=== PATIENT | male | born 1950 | race Caucasian/White ===

== ENCOUNTER → 2019-09-13 07:43 | Outpatient (CLI) | payer MEDICARE, OTHER, SELFPAY ==
--- NOTE | 2019-09-13 07:44 | ECHOD_ITS ---
Reason For Study: DYSPNEA Procedure This was a 2D Doppler, Color Flow transthoracic echocardiogram. Exam performed in department. Left Ventricle Normal LV size. The estimated ejection fraction is 45 %. Stage 1 diastolic dysfunction. There is mild global hypokinesis of the left ventricle. Right Ventricle Normal RV size. Normal systolic function. Atria Normal left atrium. Normal right atrium. No doppler evidence for ASD. Mitral Valve There is no mitral valve stenosis. Trivial mitral valve insufficiency. Tricuspid Valve There is no tricuspid stenosis. No tricuspid valve insufficiency. Unable to estimate RV systolic pressure due to insufficient tricuspid regurgitant envelope. Aortic Valve Trisinus/trileaflet aortic valve. There is no aortic stenosis. Trivial aortic valve insufficiency. Pulmonic Valve There is no pulmonic valvular stenosis. Trivial pulmonic valve insufficiency. Great Vessels Normal aortic root. Pericardium/Pleural No pericardial effusion. MMode/2D Measurements & Calculations LVIDd: 6.6 cm IVSd: 1.4 cm Ao root diam: 3.9 cm LVIDs: 5.4 cm LVPWd: 1.3 cm RVDd: 3.1 cm FS: 18.3 % LAV(MOD-bp): 73.6 ml LA A4 area: 23.1 cm2 LA dimension(2D): 4.6 cm LAV(MOD-bp) Indexed: 31.7 ml/m2 LAV(MOD-sp2): 70.8 ml LAV(MOD-sp4): 73.6 ml RA A4 area: 14.6 cm2 Time Measurements MV dec time: 0.13 sec Doppler Measurements & Calculations MV E max lux: 61.5 cm/sec Lat Peak E' Lux: 7.3 cm/sec Med Peak E' Lux: 4.5 cm/sec MV A max lux: 101.8 cm/sec E/E' lat: 8.4 E/E' med: 13.8 MV E/A: 0.60 Ao V2 max: 116.6 cm/sec AI max lux: 449.4 cm/sec LV V1 max: 81.0 cm/sec Ao max P.4 mmHg AI max P.8 mmHg LV V1 max P.6 mmHg AI dec slope: 297.2 cm/sec2 AI P1/2t: 442.9 msec PA V2 max: 69.5 cm/sec Interpretation Summary The estimated ejection fraction is 45 %. Stage 1 diastolic dysfunction. There is mild global hypokinesis of the left ventricle. Trivial mitral valve insufficiency. Trivial aortic valve insufficiency. Ordering Physician: Jose A Suarez Referring Physician: Fritz Gasca Performed By: Germaine Mcbride, MAURICIO, RVT
--- NOTE | 2019-09-14 11:15 | PFT ---
INTRODUCTION: The patient is a 68-year-old male that presents for pulmonary function studies secondary to a diagnosis of dyspnea. Respiratory therapy reports good patient effort. Bronchodilators were used during testing. INTERPRETATION: Forced expiration spirometry demonstrates the presence of a very severe large airways obstructive ventilatory defect. There was a significant response to aerosolized bronchodilators noted. Spirograms are of fair quality and do not plateau indicating slow emptying of the lungs. Body plethysmography was performed and reveals an elevated TLC and RV, indicative of underlying hyperinflation and air trapping. Diffusing capacity by single breath CO is reduced at 58% of predicted. IMPRESSION: Partially reversible very severe large airways obstructive ventilatory defect with associated hyperinflation, air trapping and moderate reduction in diffusing capacity.
== END ==
PROVIDERS: PCP Family Medicine; Referring Provider Internal Medicine Critical Care Medicine; Visit Provider Internal Medicine Critical Care Medicine
DX: R06.00 Dyspnea, unspecified (principal)
CPT/HCPCS: 93306; 94010; 94060; 94726; 94729

== ENCOUNTER → 2019-09-21 12:35 | Outpatient (CLI) | payer MEDICARE, OTHER, SELFPAY ==
[2019-09-21 13:54] VITALS: PULSE 100; PULSE 101; PULSE 103; PULSE 106; PULSE 85; PULSE 90; PULSE 94; PULSE 99; O2SAT 91; O2SAT 92; O2SAT 93; O2SAT 95
--- NOTE | 2019-09-21 14:31 | PCM.PSN.6M ---
PSN 6 Minute Walk Test - 6 Minute Walk Test 6 Minute Walk Test: 6 Minute Walk Test PSN:6-Minute Walk Test Start: 09/21/19 13:37 Freq: Status: Active Protocol: RESP.6MINW Document 09/21/19 13:54 [facility] (Rec: 09/21/19 13:58 [facility] [id number]) 6 Minute Walk Test Date Performed 09/21/19 Time Performed 12:30 Height 5 ft 11 in Weight: 113.398 kg Weight in Pounds 250.[address]: Jose A Suarez Assistive device used: Walker Pre-test Oxygen Delivery Method Room Air Pulse Ox (%) 95 Pulse Rate (60-100 beats/min) 90 Dyspnea Monique Scale (0-10) 3 1st minute Oxygen Delivery Method Room Air Pulse Ox (%) 92 Pulse Rate (60-100 beats/min) 94 Dyspnea Monique Scale (0-10) 4 Number of Rests Taken 0 Reported Symptoms Increased Work of Breathing 2nd minute Oxygen Delivery Method Room Air Pulse Ox (%) 91 Pulse Rate (60-100 beats/min) 106 H Dyspnea Monique Scale (0-10) 4 Number of Rests Taken 0 Reported Symptoms Increased Work of Breathing 3rd minute Oxygen Delivery Method Room Air Pulse Ox (%) 91 Pulse Rate (60-100 beats/min) 99 Dyspnea Monique Scale (0-10) 5 Number of Rests Taken 1 Reported Symptoms Increased Work of Breathing 4th minute Oxygen Delivery Method Room Air Pulse Ox (%) 93 Pulse Rate (60-100 beats/min) 100 Dyspnea Monique Scale (0-10) 4 Number of Rests Taken 0 Reported Symptoms Increased Work of Breathing 5th minute Oxygen Delivery Method Room Air Pulse Ox (%) 93 Pulse Rate (60-100 beats/min) 101 H Dyspnea Monique Scale (0-10) 4 Number of Rests Taken 0 Reported Symptoms Increased Work of Breathing 6th minute Oxygen Delivery Method Room Air Pulse Ox (%) 92 Pulse Rate (60-100 beats/min) 103 H Dyspnea Monique Scale (0-10) 5 Number of Rests Taken 0 Reported Symptoms Increased Work of Breathing Post-test Oxygen Delivery Method Room Air Pulse Ox (%) 95 Pulse Rate (60-100 beats/min) 85 Dyspnea Monique Scale (0-10) 3 Reported Symptoms Increased Work of Breathing Full Laps Walked 8 Partial Lap, Number of Tiles Walked 13 Total Distance Walked (ft) 485 - Interpretation Interpretation: Patient was able to ambulate 485 feet over the course of 6 minutes on room air with the assistance of a wheelchair for stabilization and one break. The patient experienced significant desaturation to as low as 91% and a peak heart rate of 106 bpm. These findings are consistent with a respiratory limitation exercise tolerance. - Recommendations Recommendations: The patient requires no supplemental oxygen at this time. However, patient will need to be followed closely given level of desaturation.
== END ==
PROVIDERS: PCP Family Medicine; Referring Provider Internal Medicine Critical Care Medicine; Visit Provider Internal Medicine Critical Care Medicine
DX: R06.00 Dyspnea, unspecified (principal)
CPT/HCPCS: 94618

== ENCOUNTER 2020-06-14 16:16 | Inpatient (IN) | payer MEDICARE, OTHER, SELFPAY ==
[2020-06-12 07:53] VITALS: BMI 33.2
[2020-06-14] VITALS (9 sets, daily range): BP systolic 115–155; BP diastolic 70–94; PULSE 95–114; RESP 12–33; TEMP 36.6–37.3; O2SAT 93–97; BMI 35.1; BMI 33.0
--- NOTE | 2020-06-14 16:27 | EKG12_ITS ---
Test Reason : SOB Blood Pressure : / mmHG Vent. Rate : 107 BPM Atrial Rate : 107 BPM P-R Int : 182 ms QRS Dur : 092 ms QT Int : 340 ms P-R-T Axes : 015 -33 025 degrees QTc Int : 453 ms Sinus tachycardia Left axis deviation Left ventricular hypertrophy Abnormal ECG Confirmed by PHILIPPE BREAUX, ANA ([id number]), purchase request editor ABHISHEK MARCUM ([id number]) on 06/17/2020 11:04:24 AM Referred By: SHAHEED Confirmed By:ANA PAEZ MD
--- NOTE | 2020-06-14 16:32 | EDS_ITS ---
HPI History of Present Illness Chief Complaint: Shortness of Breath Informant: patient, spouse/S.O. and EMS Narrative Narrative: 69-year-old male presents via EMS with a chief complaint of dyspnea. Patient states that since the beginning of May he has had a change in his mucus. He states it was thick yellow and got a little bit better in terms of his cough but then turned green. Yesterday he was seen at his director drug safety office where home oxygen was ordered but he did not have it yet. He states that during the night he began to have chills and sweats. states he had a fever of 104. His breathing became significantly labored today and EMS was called. They noted him to be about 86-87% at home. EMS gave breathing treatments and supplemental oxygen they also administered Solu-Medrol. [facility] Medical History (Updated 06/14/20 @ 19:[address] Chase Hurd DO) Asthma COPD (chronic obstructive pulmonary disease) COPD (chronic obstructive pulmonary disease) Essential hypertension Other psoriasis Home Medications ipratropium 0.5 mg-albuterol 3 mg (2.5 mg base)/3 mL nebulization soln 3 ml INHALATION 6XD #180 ml 12/17/19 [Rx Last Taken Unknown] albuterol sulfate 90 mcg/actuation aerosol inhaler 2 puff INHALATION Q6H PRN #8.5 g 06/12/20 [Rx Last Taken Unknown] budesonide 0.5 mg/2 mL suspension for nebulization 0.5 mg INHALATION BID #60 ml 06/12/20 [Rx Last Taken Unknown] Allergy/AdvReac Type Severity Reaction Status Date / Time No Known Allergies Allergy Unverified 06/12/20 08:42 Family History (Reviewed 06/12/20 @ 09:04 by Bethany Castellanos CHEMISTRY DEPARTMENT CHAIR, CHEMISTRY DEPARTMENT CHAIR-C) Father Myocardial infarction Grandmother Diabetes Other CAD (coronary artery disease) Surgical History No pertinent past surgical history Social History household members: spouse housing: other details: Mobile home pets and animals: Yes pets and animals: dog(s) Smoking Status: Former smoker quit date: 02/14/09 alcohol intake: former ROS ROS ED Constitutional Constitutional ED: Reports chills, fever(s) and sweats; Denies weight loss Eyes Eyes: Denies change in vision or diplopia ENT ENT ED: Reports rhinorrhea; Denies ear pain or sore throat Cardiovascular Cardiovascular: Denies chest pain, orthopnea, palpitations or racing heartbeat Respiratory/Chest Respiratory/Chest: Reports cough, dyspnea, dyspnea on exertion and sputum; Denies orthopnea Gastrointestinal Gastrointestinal: Denies abdominal pain, diarrhea, nausea or vomiting Genitourinary Genitourinary ED: Denies dysuria, hematuria or urinary frequency Musculoskeletal Musculoskeletal: Denies arthralgias or myalgias Integumentary Denies abscess or rash Neurologic Neurologic: Reports headache(s); Denies weakness Psychiatric Psychiatric: Denies anxiety, depression, suicidal ideation or suicidal thoughts Endocrine Endocrinology: Denies polydipsia, polyphagia or polyuria Allergic/Immunologic Allergic/Immunologic ED: Denies mouth swelling, tongue swelling or urticaria EXAM Physical Exam Const Vital Signs: 06/14/20 16:18 06/14/20 16:30 06/14/20 16:49 Temperature 97.9 F Temperature Source Oral Pulse Rate 114 H 109 H Respiratory Rate 33 H 21 H Respiratory Effort Short of Breath Labored Respiratory Depth Normal Respiratory Pattern Tachypnea Normal Blood Pressure 155/94 H Blood Pressure Mean 114 Pulse Ox 96 97 Oxygen Delivery Method Nasal Cannula Nasal Cannula Oxygen Flow Rate (L/min) 2 2 Fraction of Inspired Oxygen (FIO2) 40 06/14/20 17:58 06/14/20 18:00 06/14/20 19:06 Temperature 98.5 F 98.5 F 98.5 F Temperature Source Oral Oral Oral Pulse Rate 112 H 104 H 102 H Respiratory Rate 18 30 H 26 H Respiratory Effort Respiratory Depth Respiratory Pattern Blood Pressure 118/78 115/70 120/79 Blood Pressure Mean 91 85 92 Pulse Ox 95 94 94 Oxygen Delivery Method Nasal Cannula Nasal Cannula Nasal Cannula Oxygen Flow Rate (L/min) 3 3 3 Fraction of Inspired Oxygen (FIO2) Positive well nourished and well developed General Appearance ED: well developed HEENT Reports normocephalic, head/scalp atraumatic and moist mucous membranes HEENT Narrative: Rhinorrhea Eyes PERRL and EOMs intact bilaterally Neck no lymphadenopathy, supple and no JVD Resp Resp Narrative: Moderate respiratory distress Auscultation: rhonchi Cardio regular rate and no murmurs Rate: tachycardic GI normal to inspection, nondistended, normoactive bowel sounds and non-tender Palpation: soft Back/Spine no CVA tenderness and normal ROM Extremity normal to inspection General Extremety ED: Negative for edema General Extremity: Negative for edema Neuro oriented x3 and CN's II-XII intact bilaterally Sensorium / Orientation: alert Motor Exam: strength 5/5 throughout Psych mental status grossly normal Mood & Affect: Negative for depressed or tearful Skin no rashes or lesions noted and no wounds General Skin Exam: other Diaphoretic MDM MDM MDM Narrative Medical decision making narrative: Patient initially treated with BiPAP. His pH was normal with no significant elevation in his CO2. Patient did not wish to be on the BiPAP any further and after breathing treatment was breathing significantly better. Patient's Covid test came back positive. White count is 3.5. Troponin 0 0.05. Lactic acid 1.2. My interpretation of his single view portable chest x-ray is no definitive infiltrates. CTA of the chest demonstrates patchy focal areas of inflammation. No pulmonary embolisms. Patient received a breathing treatment supplemental oxygen currently requiring 3 L. He had already received Solu-Medrol by EMS. Our plan is admission to the hospital. Lab Data Attestation: I reviewed the patient's lab results. Labs: Laboratory Results - last 24 hr 06/14/20 06/14/20 06/14/20 16:30 16:30 16:30 WBC 3.5 L RBC 4.88 Hgb 14.3 Hct 43.7 MCV 89.5 MCH 29.3 MCHC 32.7 RDW Std Deviation 45.0 H RDW Coeff of [place] 13.7 Plt Count 174 MPV 9.0 Immature Gran % (Auto) 2.300 H Neut % (Auto) 66.4 Lymph % (Auto) 22.1 Granite % (Auto) 8.0 Eos % (Auto) 0.3 Baso % (Auto) 0.9 Absolute Neuts (auto) 2.3 Absolute Lymphs (auto) 0.77 L Nucleated RBC % 0 PT 13.1 INR 1.1 APTT 33.1 Sodium 133 L Potassium 3.8 Chloride 100 Carbon Dioxide 25.0 Anion Gap 8 BUN 15 Creatinine 0.94 Estim Creat Clear Calc 76.58 Est GFR (MDRD) Af Amer 102 Est GFR (MDRD) Non-Af 85 BUN/Creatinine Ratio 16.0 Glucose 130 H Lactic Acid Calcium 8.1 L Total Bilirubin 0.60 AST 29 ALT 25 Alkaline Phosphatase 75 Troponin I 0.055 H B-Natriuretic Peptide Total Protein 7.7 Albumin 3.3 Globulin 4.4 H Albumin/Globulin Ratio 0.8 L 06/14/20 06/14/20 16:30 16:30 WBC RBC Hgb Hct MCV MCH MCHC RDW Std Deviation RDW Coeff of [place] Plt Count MPV Immature Gran % (Auto) Neut % (Auto) Lymph % (Auto) Granite % (Auto) Eos % (Auto) Baso % (Auto) Absolute Neuts (auto) Absolute Lymphs (auto) Nucleated RBC % PT INR APTT Sodium Potassium Chloride Carbon Dioxide Anion Gap BUN Creatinine Estim Creat Clear Calc Est GFR (MDRD) Af Amer Est GFR (MDRD) Non-Af BUN/Creatinine Ratio Glucose Lactic Acid 1.2 Calcium Total Bilirubin AST ALT Alkaline Phosphatase Troponin I B-Natriuretic Peptide 298.7 H Total Protein Albumin Globulin Albumin/Globulin Ratio ABG Data ABG results: ABG 06/14/20 17:18 Specimen Type ART Sample Site R Radial pH 7.44 Bicarbonate Actual 21.5 L Total CO2 23 Base Excess -3 L O2 Saturation 98 O2 % 40 ABG pCO2 32.0 L ABG pO2 99 O2 Delivery Device BiPAP POC PEEP 8 Clinical Comments 15 8 Radiography Diagnostic Testing: Radiology Impression Chest X-Ray 06/14/20 17:30 IMPRESSION: Basilar atelectasis. Cardiomegaly. Electronically Signed: Dylan Escalante DO at 18:36 EDT Tel [phone], Service support , Chest CTA 06/14/20 17:43 IMPRESSION: No demonstrated pulmonary embolism or arterial dissection. Hyperaerated lungs. Patchy interstitial densities and infiltrates. Subcentimeter mediastinal nodes. Electronically Signed: Dylan Escalante DO at 19:09 EDT Tel [phone], Service support , Discharge Plan Triage Chief Complaint: Shortness of Breath ED Provider: Chase Hurd Dx/Rx/DC Orders Clinical Impression: COVID-19 determined by clinical diagnostic criteria, Hypoxia Prescriptions: No Action ipratropium-albuterol 0.5 mg-3 mg(2.5 mg base)/3 mL solution for nebulization 3 ml INHALATION 6XD Qty: 180 RF: 5 budesonide [Pulmicort] 0.5 mg/2 mL suspension for nebulization 0.5 mg INHALATION BID Qty: 60 RF: 6 albuterol sulfate [Ventolin HFA] 90 mcg/actuation HFA aerosol inhaler 2 puff inhalation Q6H PRN (Reason: shortness of breath or wheezing) Qty: 8.5 RF: 6 Primary Care Provider: Fritz Gasca Referrals: Fritz Gasca MD [Primary Care Provider] - Disposition Disposition: Acute Care [facility]
[2020-06-14] MEDS: 0.9% Normal Saline 1,000 ML 150 ML IV (16:41)
[2020-06-14] MEDS: Ipratropium/Albuterol Sulfate 3 ML AMPUL.NEB INHALATION (16:42)
[2020-06-14 16:45] LABS: Absolute Lymphocyte Count 0.77 X10^3/uL (0.83-4.51); Absolute Neutrophil Count 2.3 X10^3/uL (2.0-7.7); Basophil# 0.03 X10^3/uL; Basophil% 0.9 % (0-1); Eosinophil# 0.01 X10^3/uL; Eosinophils% 0.3 % (0-5); Hematocrit 43.7 % (40-54); Hemoglobin 14.3 g/dL (13.0-16.5); Lymphocyte # 0.77 X10^3/ul (0.83-4.51); Lymphocyte % 22.1 % (19-41); Mean Corp Hgb Conc 32.7 g/dL (32-36); Mean Corpuscular Hgb 29.3 pg (27.0-32.0); Mean Corpuscular Volume 89.5 fL (80-94); Monocyte# 0.28 X10^3/uL; NRBC Flagged by Analyzer 0 % (0-5); Neutrophil # 2.32 X10^3/uL (2.7-7.7); Neutrophil % 66.4 % (47-70); Platelet Count 174 K/mm3 (150-450); RBC Distribution Width CV 13.7 % (11.6-14.6); Red Blood Count 4.88 M/mm3 (4.6-6.2); White Blood Count 3.5 K/mm3 (4.4-11.0)
[2020-06-14 17:04] LABS: International Normalized Ratio 1.1; Prothrombin Time (Protime)PT. 13.1 SECONDS (11.7-14.9)
[2020-06-14 17:05] LABS: Partial Thromboplast Time 33.1 Seconds (24.1-36.2)
[2020-06-14 17:08] LABS: Lactic Acid 1.2 mmol/L (0.4-1.9)
[2020-06-14 17:12] LABS: BNP,B-Type NATRIURETIC PEPTIDE 298.7 pg/mL (0-100)
[2020-06-14 17:13] LABS: ALB/GLOB Ratio 0.8 RATIO (0.9-2.4); AST(SGOT) 29 U/L (15-37); Alanine Aminotransfer ALT/SGPT 25 U/L (16-61); Albumin, Serum 3.3 g/dL (3.2-5.0); Alkaline Phosphatase 75 U/L (45-117); Anion Gap 8 (5-15); BUN 15 mg/dL (7-18); Calcium,Total 8.1 mg/dL (8.5-10.1); Chloride 100 mmol/L (98-107); Creatinine, Serum 0.94 mg/dL (0.70-1.30); EST Glomerular Filtration Rate 85 mL/min (>60); Est Glom Filt Rate - Afr Amer 102 mL/min (>60); Estimated Creatinine Clearance 76.58 ml/min; Globulin 4.4 g/dL (2.2-4.2); Glucose 130 mg/dL (74-106); Potassium 3.8 mmol/L (3.5-5.1); Protein, Total 7.7 g/dL (6.4-8.2); Sodium Level 133 mmol/L (136-145)
[2020-06-14 17:25] LABS: Base Excess -3 mmol/L (-2 to +2); Bicarbonate 21.5 mmol/L (22-26); Blood Gas Specimen Type ART; Comment 15 8; FI02 40; O2 Delivery Device BiPAP; PEEP 8; PO2 99 mmHG (75-100); SITE R Radial; SO2 98 % (95-99); Total Carbon Dioxide 23 mmol/L; pH 7.44 (7.35-7.45)
--- NOTE | 2020-06-14 17:30 | RAD_ITS ---
STUDY: X-RAY CHEST REASON FOR EXAM: Male, 69 years old. Fever and cough TECHNIQUE: Frontal view COMPARISON: None. FINDINGS: The lungs are expanded. Basilar atelectasis. Cardiomegaly. Normal mediastinum and nusrat. Normal visualized pulmonary arteries. Calcified aortic arch and descending thoracic aorta. Degenerative changes of the thoracic spine. Normal visualized ribs, clavicles, and shoulders. There is no demonstrated abnormality of the visualized soft tissue structures of the upper abdomen. RAD/Chest 1 View (Portable) IMPRESSION: Basilar atelectasis. Cardiomegaly. Electronically Signed: Dylan Escalante DO at 18:36 EDT Tel [phone], Service support ,
--- NOTE | 2020-06-14 17:43 | CT_ITS ---
STUDY: CTA CHEST REASON FOR EXAM: Male, 69 years old. covid 19 high prob of pulmonary embolism RADIATION DOSAGE (If Supplied By Facility): CTDIvol = ( 12.59 ) mGy, DLP = ( 532.33 ) mGycm TECHNIQUE: The examination was performed with the intravenous administration of IV 100mL [id number]-370. Post-processing of the angiographic images was performed, with multiplanar reformation and 3D reconstruction. Individualized dose optimization techniques were used for this CT. COMPARISON: None. FINDINGS: Normal enhancement of the main pulmonary artery and right and left pulmonary arteries. Normal enhancement of the bilateral peripheral pulmonary arteries. There is no demonstrated pulmonary embolism. Normal thoracic aorta and visualized great vessels. There is no demonstrated aortic dissection. Normal heart and pericardium. Subcentimeter nodes in the mediastinum. Normal hilar regions. Normal visualized trachea and bronchi. The lungs are hyperaerated. Patchy interstitial densities and infiltrates. Normal pleura. Normal chest wall structures. Degenerative vertebral changes. Normal visualized upper abdomen. CT/CTA Chest W/WO Contrast IMPRESSION: No demonstrated pulmonary embolism or arterial dissection. Hyperaerated lungs. Patchy interstitial densities and infiltrates. Subcentimeter mediastinal nodes. Electronically Signed: Dylan Escalante DO at 19:09 EDT Tel [phone], Service support ,
--- NOTE | 2020-06-14 19:29 | HP.PCM.HOS_ITS ---
[facility] General Date of Admission: 06/14/20 Chief Complaint: Shortness of breath HPI Narrative CARMINE PELAYO, is a 69 M with a significant history of severe COPD; and hypertension who presented to the emergency department with a persistent shortness of breath that began about 4 weeks ago. Associated with his symptoms is fatigue; myalgia; malaise; and productive cough. His sputum was previously yellow and then green and now it is clear. He reports hypoxia at home. On the night before presentation reported patient developed a fever of about 104 Fah renheit. He reports chills. Paramedics gave patient Solu-Medrol in route to the emergency department.. 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 A 6-minute walk test was done and outpatient oxygen was prescribed oxygen which is yet to be delivered to patient. [facility] Medical History Asthma COPD (chronic obstructive pulmonary disease) COPD (chronic obstructive pulmonary disease) Essential hypertension Other psoriasis Home Medications ipratropium 0.5 mg-albuterol 3 mg (2.5 mg base)/3 mL nebulization soln 3 ml I NHALATION 6XD #180 ml 12/17/19 [Rx Last Taken Unknown] albuterol sulfate 90 mcg/actuation aerosol inhaler 2 puff INHALATION Q6H PRN #8.5 g 06/12/20 [Rx Last Taken Unknown] budesonide 0.5 mg/2 mL suspension for nebulization 0.5 mg INHALATION BID #60 ml 06/12/20 [Rx Last Taken Unknown] Allergy/AdvReac Type Severity Reaction Status Date / Time No Known Allergies Allergy Unverified 06/12/20 08:42 Family History Father Myocardial infarction Grandmother Diabetes Other CAD (coronary artery disease) Surgical History History of tonsillectomy Social History household members: spouse housing: other details: Mobile home number of children: 4 pets and animals: Yes pets and animals: dog(s) Smoking Status: Former smoker quit date: 02/14/09 alcohol intake: former ROS Constitutional Constitutional: Reports chills, fatigue, malaise and weakness Eyes Eyes: Denies blurry vision or change in vision ENT HEENT: Denies abnormal hearing or dysphagia Cardiovascular Cardiovascular: Reports dyspnea on exertion; Denies chest pain or edema Respiratory/Chest Respiratory/Chest: Reports cough, productive cough, shortness of breath at rest and shortness of breath with exertion Gastrointestinal Gastrointestinal: Denies abdominal pain, constipation or diarrhea Genitourinary Genitourinary: Denies burning urination or difficulty urinating Musculoskeletal Musculoskeletal: Reports myalgias; Denies arthralgias Neurologic Neurologic: Denies confusion or disequilibrium Psychiatric Psychiatric: Denies anxiety or depression Endocrine Endocrinology: Denies change in body appearance or cold intolerance Vital Signs Vital Signs Vital Signs: 06/14/20 16:18 06/14/20 16:30 06/14/20 16:49 Temperature 97.9 F Temperature Source Oral Pulse Rate 114 H 109 H Respiratory Rate 33 H 21 H Respiratory Effort Short of Breath Labored Respiratory Depth Normal Respiratory Pattern Tachypnea Normal Blood Pressure 155/94 H Blood Pressure Mean 114 Pulse Ox 96 97 Oxygen Delivery Method Nasal Cannula Nasal Cannula Oxygen Flow Rate (L/min) 2 2 Fraction of Inspired Oxygen (FIO2) 40 06/14/20 17:58 06/14/20 18:00 06/14/20 19:06 Temperature 98.5 F 98.5 F 98.5 F Temperature Source Oral Oral Oral Pulse Rate 112 H 104 H 102 H Respiratory Rate 18 30 H 26 H Respiratory Effort Respiratory Depth Respiratory Pattern Blood Pressure 118/78 115/70 120/79 Blood Pressure Mean 91 85 92 Pulse Ox 95 94 94 Oxygen Delivery Method Nasal Cannula Nasal Cannula Nasal Cannula Oxygen Flow Rate (L/min) 3 3 3 Fraction of Inspired Oxygen (FIO2) Physical Exam Narrative Alert and oriented x3 Nontraumatic; normocephalic Lung sounds are diminished Heart sounds S1-S2. Tachycardia. No murmur, gallop or rubs. Abdomen bowel sounds present soft, nontender nondistended Extremity without edema cyanosis or clubbing. Lab / Micro Data Result Diagrams: 06/14/20 16:30 06/14/20 16:30 Labs: Laboratory Results - last 24 hr 06/14/20 06/14/20 06/14/20 16:30 16:30 16:30 WBC 3.5 L RBC 4.88 Hgb 14.3 Hct 43.7 MCV 89.5 MCH 29.3 MCHC 32.7 RDW Std Deviation 45.0 H RDW Coeff of [place] 13.7 Plt Count 174 MPV 9.0 Immature Gran % (Auto) 2.300 H Neut % (Auto) 66.4 Lymph % (Auto) 22.1 [place] % (Auto) 8.0 Eos % (Auto) 0.3 Baso % (Auto) 0.9 Absolute Neuts (auto) 2.3 Absolute Lymphs (auto) 0.77 L Nucleated RBC % 0 PT 13.1 INR 1.1 APTT 33.1 Sodium 133 L Potassium 3.8 Chloride 100 Carbon Dioxide 25.0 Anion Gap 8 BUN 15 Creatinine 0.94 Estim Creat Clear Calc 76.58 Est GFR (MDRD) Af Amer 102 Est GFR (MDRD) Non-Af 85 BUN/Creatinine Ratio 16.0 Glucose 130 H Lactic Acid Calcium 8.1 L Total Bilirubin 0.60 AST 29 ALT 25 Alkaline Phosphatase 75 Troponin I 0.055 H B-Natriuretic Peptide Total Protein 7.7 Albumin 3.3 Globulin 4.4 H Albumin/Globulin Ratio 0.8 L 06/14/20 06/14/20 16:30 16:30 WBC RBC Hgb Hct MCV MCH MCHC RDW Std Deviation RDW Coeff of [place] Plt Count MPV Immature Gran % (Auto) Neut % (Auto) Lymph % (Auto) [place] % (Auto) Eos % (Auto) Baso % (Auto) Absolute Neuts (auto) Absolute Lymphs (auto) Nucleated RBC % PT INR APTT Sodium Potassium Chloride Carbon Dioxide Anion Gap BUN Creatinine Estim Creat Clear Calc Est GFR (MDRD) Af Amer Est GFR (MDRD) Non-Af BUN/Creatinine Ratio Glucose Lactic Acid 1.2 Calcium Total Bilirubin AST ALT Alkaline Phosphatase Troponin I B-Natriuretic Peptide 298.7 H Total Protein Albumin Globulin Albumin/Globulin Ratio Micro: Microbiology 06/14/20 16:35 Influenza Types A,B Direct FA (SULMA) - Final Mucosa - Nasopharyngeal 06/14/20 16:40 SARS-CoV-2 Antigen (Rapid) - Final Nasal Secretion SARS-CoV-2 (COVID 19) ABG Data ABG results: ABG 06/14/20 17:18 Specimen Type ART Sample Site R Radial pH 7.44 Bicarbonate Actual 21.5 L Total CO2 23 Base Excess -3 L O2 Saturation 98 O2 % 40 ABG pCO2 32.0 L ABG pO2 99 O2 Delivery Device BiPAP POC PEEP 8 Clinical Comments 15 8 Radiology Impression Chest X-Ray 06/14/20 17:30 IMPRESSION: Basilar atelectasis. Cardiomegaly. Electronically Signed: Dylan Escalante at 18:36 EDT Tel [phone], Service support , Chest CTA 06/14/20 17:43 IMPRESSION: No demonstrated pulmonary embolism or arterial dissection. Hyperaerated lungs. Patchy interstitial densities and infiltrates. Subcentimeter mediastinal nodes. Electronically Signed: Dylan Boris at 19:09 EDT Tel [phone], Service support , Assessment & Plan Assessment/Plan (1) COVID-19 determined by clinical diagnostic criteria: Status: Acute Code(s): U07.1 - COVID-19 Plan: Acute hypoxemic respiratory insufficiency secondary to SARS- COV 2 Pneumonia Patient is not requiring supplemental oxygen. Supplemental oxygen to maintain oxygen saturation of 90 to 92% ordered. Positive coronavirus test on presentation. Chest x-ray with bibasilar atelectasis and cardiomegaly. Impression of chest CTA by radiologist: No demonstrated pulmonary embolism or arterial dissection. Hyperaerated lungs. Patchy interstitial densities and infiltrates. Subcentimeter mediastinal nodes. Actual chest CTA image was independently interpreted. I agree radiologist interpretation. Procalcitonin ordered. Received Solu-Medrol in route emergency department. Decadron daily ordered. [id number] breathing treatments ordered. As needed albuterol ordered. Not a candidate for remdesivir as his symptom has been going on for about 4 weeks. Review of emergency department labs showed a significant bandemia. Trend CBC and CMP. Tylenol for fever Mucinex ordered (2) Elevated troponin: Status: Acute Code(s): R77.8 - Other specified abnormalities of plasma proteins Plan: Review of [facility] [place] department labs showed elevated troponin. There are no ST or T of abnormalities. Likely demand ischemia from COVID-19 infection. Trend troponin. (3) Lung nodule, multiple: Status: Acute Code(s): R91.8 - Other nonspecific abnormal finding of lung field Plan: Likely reactive from COVID-19 infection. Longitudinal follow-up recommended. (4) Asthma: Status: Chronic Code(s): J45.909 - Unspecified asthma, uncomplicated Qualifiers: Asthma complication type: uncomplicated Asthma persistence: persistent Asthma severity: moderate Qualified Code(s): J45.40 - Moderate persistent asthma, uncomplicated Plan: Breathing treatments and steroids as above (5) COPD (chronic obstructive pulmonary disease): Status: Chronic Code(s): J44.9 - Chronic obstructive pulmonary disease, unspecified Qualifiers: COPD type: chronic bronchitis Chronic bronchitis type: mucopurulent Qualified Code(s): J41.1 - Mucopurulent chronic bronchitis Plan: Breathing treatment and steroids as above Visit Charges Inpatient E&M: 86714 Init Hosp L3
[2020-06-14] MEDS: Enoxaparin 30 MG/0.3 ML Syringe SC (22:02)
[2020-06-14] MEDS: guaiFENesin 1,200 MG Tablet 1200 MG PO (22:02)
[2020-06-14] MEDS: INHALER, ASSIST DEVICES 1 EACH SPACER INHALATION (22:03)
[2020-06-14] MEDS: MELATONIN 3 MG TABLET PO (22:06)
[2020-06-15] VITALS (7 sets, daily range): BP systolic 118–147; BP diastolic 50–93; PULSE 45–92; RESP 16–20; TEMP 36.3–36.6; O2SAT 92–95
[2020-06-15 05:44] LABS: Absolute Lymphocyte Count 0.38 X10^3/uL (0.83-4.51); Absolute Neutrophil Count 1.4 X10^3/uL (2.0-7.7); Basophil# 0.01 X10^3/uL; Basophil% 0.5 % (0-1); Hematocrit 40.9 % (40-54); Hemoglobin 13.1 g/dL (13.0-16.5); Lymphocyte # 0.38 X10^3/ul (0.83-4.51); Lymphocyte % 19.1 % (19-41); Mean Corpuscular Hgb 28.6 pg (27.0-32.0); Mean Corpuscular Volume 89.3 fL (80-94); Monocyte# 0.14 X10^3/uL; NRBC Flagged by Analyzer 0 % (0-5); Neutrophil # 1.42 X10^3/uL (2.7-7.7); Neutrophil % 71.4 % (47-70); POSITIVE DIFFERENTIAL YES; Platelet Count 146 K/mm3 (150-450); RBC Distribution Width CV 13.9 % (11.6-14.6); RBC Distribution Width SD 45.2 fl (35.1-43.9); Red Blood Count 4.58 M/mm3 (4.6-6.2)
[2020-06-15 05:47] LABS: Differential Indicated SCAN CRITERIA MET
[2020-06-15 06:02] LABS: Differential Comment SCANNED
[2020-06-15 06:05] LABS: ALB/GLOB Ratio 0.7 RATIO (0.9-2.4); AST(SGOT) 22 U/L (15-37); Alanine Aminotransfer ALT/SGPT 22 U/L (16-61); Albumin, Serum 2.9 g/dL (3.2-5.0); Alkaline Phosphatase 61 U/L (45-117); Anion Gap 7 (5-15); BUN 19 mg/dL (7-18); BUN/Creat Ratio 20.9 RATIO (10-20); Calcium,Total 8.1 mg/dL (8.5-10.1); Chloride 102 mmol/L (98-107); Creatinine, Serum 0.91 mg/dL (0.70-1.30); EST Glomerular Filtration Rate 88 mL/min (>60); Est Glom Filt Rate - Afr Amer 107 mL/min (>60); Globulin 4.2 g/dL (2.2-4.2); Glucose 212 mg/dL (74-106); Protein, Total 7.1 g/dL (6.4-8.2); Sodium Level 135 mmol/L (136-145)
[2020-06-15] MEDS: Ipratropium/Albuterol Sulfate 3 ML AMPUL.NEB INHALATION ×3 (06:45→19:52)
[2020-06-15] MEDS: guaiFENesin 1,200 MG Tablet 1200 MG PO ×2 (08:50→20:29)
[2020-06-15] MEDS: Acetaminophen 325 MG Tablet 650 MG PO ×3 (08:50→22:43)
[2020-06-15] MEDS: dexAMETHasone 10 MG/ML Vial 6 MG IV (08:51)
[2020-06-15] MEDS: 0.9% Saline Lock 10 ML Syringe IV ×3 (08:52→17:23)
[2020-06-15] MEDS: Enoxaparin 30 MG/0.3 ML Syringe SC ×2 (08:54→20:29)
[2020-06-15 09:10] LABS: Procalcitonin 0.05 ng/mL (0.00-0.09)
--- NOTE | 2020-06-15 09:36 | EX.PCM.CONCC ---
Assessment & Plan Assessment/Plan (1) COVID-19 determined by clinical diagnostic criteria: Status: Acute Code(s): U07.1 - COVID-19 (2) Hypoxia: Status: Acute Code(s): R09.02 - Hypoxemia (3) COPD (chronic obstructive pulmonary disease): Status: Chronic Code(s): J44.9 - Chronic obstructive pulmonary disease, unspecified Qualifiers: COPD type: chronic bronchitis Chronic bronchitis type: mucopurulent Qualified Code(s): J41.1 - Mucopurulent chronic bronchitis (4) Asthma: Status: Chronic Code(s): J45.909 - Unspecified asthma, uncomplicated Qualifiers: Asthma severity: moderate Asthma persistence: persistent Asthma complication type: uncomplicated Qualified Code(s): J45.40 - Moderate persistent asthma, uncomplicated (5) Essential hypertension: Status: Acute Code(s): I10 - Essential (primary) hypertension (6) Obesity (BMI 30.0-34.9): Status: Acute Code(s): E66.9 - Obesity, unspecified Plan: RECOMMENDATIONS: 1. Continue Decadron. Does not qualify for Remdesivir 2. Wean oxygen as tolerated 3. Continue bronchodilators 4. Walking oximetry prior to discharge 5. Attempt relative volume restriction 6. Supportive therapy for fever 7. Consider monitoring blood sugars given risk for hyperglycemia IMPRESSIONS: 1. Acute hypoxic respiratory insufficiency secondary to COVID-19 in the setting of COPD/asthma overlap syndrome Patient with significant bronchodilator response at baseline. Patient is reporting 3 to 4 weeks of symptoms, so treatment with Remdesivir would not be indicated. Patient should be placed on Decadron therapy. We will have to monitor the patient for hypertension and hyperglycemia given Decadron therapy. Patient does have some groundglass opacities on his CT of the chest, but this does not appear to be the predominant finding. No PEs have been noted. Patient will need a walking oximetry prior to discharge. Strong clinical suspicion the patient will require supplemental oxygen on discharge. 2. Chronic systolic CHF/elevated troponin Patient last EF of 45%. Patient does not appear to be volume overloaded at this time. Given COVID-19, both relative volume restriction would be indicated. Okay to continue with baseline medications otherwise. Clinical suspicion for elevated troponin secondary to global hypoxia. 3. Obesity/delayed presentation/psoriasis/hypertension Complicates care, management, recovery and prognosis. Okay to continue with baseline medications. Patient may require titration of antihypertensives given Decadron therapy. Could consider periodic blood sugar checks given Decadron therapy also. HPI Consult Data Date of Consult: 06/15/20 HPI Narrative HPI Narrative: CARMINE PELAYO is a 69 M, with past medical history listed below, who presented to [facility] on 06/14/2020 secondary to progressive shortness of breath. Patient was seen in our office on 06/12/2020 with similar type of complaints. At that time, patient had a walking oximetry showing he needed 3 L nasal cannula with exertion. Patient stated that you sent home with an oxygen bottle, but was never offered a concentrator by the [facility]. Patient stated that he developed a fever to 104 ?F overnight became more labored, so EMS was called. Patient was noted to be 86% on room air at rest. In the ER, patient was afebrile, but tachycardic at 114 bpm. Patient was hypertensive, but did improve with nasal cannula oxygen. Patient was on BiPAP for a brief period of time. Patient also improved following a breathing treatment. Initial lab work-up showed a leukopenia of 3.5 with preserved hematocrit and platelets. INR was unremarkable. Liver function studies were unremarkable and BNP was only slightly elevated at 298. Chest x-ray showed basilar atelectasis and a CTA of the chest showed scattered groundglass opacities without acute PE. Patient was then admitted to the cohort unit for further evaluation. Since being admitted, patient reports that he is feels subjectively improved. Patient is denying any chest pain, abdominal pain, nausea or vomiting. Patient has had some loose bowel movements, but states this is been present since the beginning of the month. In retrospect, patient reports he has not felt well since about May 15. Patient states he had developed some bilious nausea and vomiting at that time. Patient also had a headache and body aches. Patient then progressed to having some shortness of breath, but was not checking his oxygen saturations at home. Patient reports that his did receive an immunization, but he did not. Review of systems otherwise negative from a constitutional, HEENT, respiratory, cardiovascular, GI, genitourinary, musculoskeletal, skin, neurologic, psychiatric and hematologic system unless stated above. [facility] Medical History Asthma COPD (chronic obstructive pulmonary disease) COPD (chronic obstructive pulmonary disease) Essential hypertension Other psoriasis Home Medications ipratropium 0.5 mg-albuterol 3 mg (2.5 mg base)/3 mL nebulization soln 3 ml INHALATION 6XD #180 ml 12/17/19 [Rx Last Taken Unknown] albuterol sulfate 90 mcg/actuation aerosol inhaler 2 puff INHALATION Q6H PRN #8.5 g 06/12/20 [Rx Last Taken Unknown] budesonide 0.5 mg/2 mL suspension for nebulization 0.5 mg INHALATION BID #60 ml 06/12/20 [Rx Last Taken Unknown] Allergy/AdvReac Type Severity Reaction Status Date / Time No Known Allergies Allergy Verified 06/15/20 02:03 Family History Father Myocardial infarction Grandmother Diabetes Other CAD (coronary artery disease) Surgical History History of tonsillectomy Social History household members: spouse housing: other details: Mobile home number of children: 4 pets and animals: Yes pets and animals: dog(s) Smoking Status: Former smoker quit date: 02/14/09 alcohol intake: former ROS ROS Narrative See HPI Physical Exam Const alert, oriented x3 and no apparent distress General Appearance: cooperative HEENT normocephalic and head/scalp atraumatic Head and Scalp: atraumatic Eyes PERRL, EOMs intact bilaterally and conjunctivae normal Neck no lymphadenopathy, supple, no JVD and no carotid bruits Resp normal respiratory effort, no use of accessory muscles and clear to auscultation bilaterally Effort and Inspection: prolonged expiratory phase Auscultation: diminished lung sounds; Negative for rales, rhonchi or wheezes Cardio regular rate, regular rhythm, S1 normal heart sound, S2 normal heart sound, no murmurs, no rub and no gallops GI normal to inspection, nondistended, normoactive bowel sounds and soft to palpation Extremity normal capillary refill and no clubbing, cyanosis or edema Skin no rashes or lesions noted Neuro oriented x3, CN's II-XII intact bilaterally and no focal motor deficits Psych cooperative and affect normal Medical Records Data Attestation: I reviewed the patient's medical records Medical records narrative: Complete PFT (09/13/2019): Partially reversible severe large airways obstructive ventilatory defect (FVC 69%, FEV1 49%, TLC 128%, RV 241%, DLCO 58%) Echocardiogram (09/13/2019): EF 45% with stage I diastolic dysfunction and mild global hypokinesis. Unable to quantify pulmonary artery pressures. Lab / Micro Data Result Diagrams: 06/15/20 05:35 06/15/20 05:35 Labs: Laboratory Results - last 24 hr 06/14/20 06/14/20 06/14/20 16:30 16:30 16:30 WBC 3.5 L RBC 4.88 Hgb 14.3 Hct 43.7 MCV 89.5 MCH 29.3 MCHC 32.7 RDW Std Deviation 45.0 H RDW Coeff of [place] 13.7 Plt Count 174 MPV 9.0 Immature Gran % (Auto) 2.300 H Neut % (Auto) 66.4 Lymph % (Auto) 22.1 [place] % (Auto) 8.0 Eos % (Auto) 0.3 Baso % (Auto) 0.9 Absolute Neuts (auto) 2.3 Absolute Lymphs (auto) 0.77 L Nucleated RBC % 0 Differential Comment Diff Path Review PT 13.1 INR 1.1 APTT 33.1 Sodium 133 L Potassium 3.8 Chloride 100 Carbon Dioxide 25.0 Anion Gap 8 BUN 15 Creatinine 0.94 Estim Creat Clear Calc 76.58 Est GFR (MDRD) Af Amer 102 Est GFR (MDRD) Non-Af 85 BUN/Creatinine Ratio 16.0 Glucose 130 H Lactic Acid Calcium 8.1 L Total Bilirubin 0.60 AST 29 ALT 25 Alkaline Phosphatase 75 Troponin I 0.055 H B-Natriuretic Peptide Total Protein 7.7 Albumin 3.3 Globulin 4.4 H Albumin/Globulin Ratio 0.8 L Procalcitonin 06/14/20 06/14/20 06/14/20 16:30 16:30 20:50 WBC RBC Hgb Hct MCV MCH MCHC RDW Std Deviation RDW Coeff of [place] Plt Count MPV Immature Gran % (Auto) Neut % (Auto) Lymph % (Auto) [place] % (Auto) Eos % (Auto) Baso % (Auto) Absolute Neuts (auto) Absolute Lymphs (auto) Nucleated RBC % Differential Comment Diff Path Review PT INR APTT Sodium Potassium Chloride Carbon Dioxide Anion Gap BUN Creatinine Estim Creat Clear Calc Est GFR (MDRD) Af Amer Est GFR (MDRD) Non-Af BUN/Creatinine Ratio Glucose Lactic Acid 1.2 Calcium Total Bilirubin AST ALT Alkaline Phosphatase Troponin I B-Natriuretic Peptide 298.7 H Total Protein Albumin Globulin Albumin/Globulin Ratio Procalcitonin 0.05 06/14/20 06/14/20 06/15/20 20:50 23:55 05:35 WBC 2.0 L RBC 4.58 L Hgb 13.1 Hct 40.9 MCV 89.3 MCH 28.6 MCHC 32.0 RDW Std Deviation 45.2 H RDW Coeff of [place] 13.9 Plt Count 146 L MPV 9.0 Immature Gran % (Auto) 2.000 H Neut % (Auto) 71.4 H Lymph % (Auto) 19.1 [place] % (Auto) 7.0 Eos % (Auto) 0.0 Baso % (Auto) 0.5 Absolute Neuts (auto) 1.4 L Absolute Lymphs (auto) 0.38 L Nucleated RBC % 0 Differential Comment SCANNED Diff Path Review May foll PT INR APTT Sodium Potassium Chloride Carbon Dioxide Anion Gap BUN Creatinine Estim Creat Clear Calc Est GFR (MDRD) Af Amer Est GFR (MDRD) Non-Af BUN/Creatinine Ratio Glucose Lactic Acid Calcium Total Bilirubin AST ALT Alkaline Phosphatase Troponin I 0.056 H 0.041 B-Natriuretic Peptide Total Protein Albumin Globulin Albumin/Globulin Ratio Procalcitonin 06/15/20 05:35 WBC RBC Hgb Hct MCV MCH MCHC RDW Std Deviation RDW Coeff of [place] Plt Count MPV Immature Gran % (Auto) Neut % (Auto) Lymph % (Auto) [place] % (Auto) Eos % (Auto) Baso % (Auto) Absolute Neuts (auto) Absolute Lymphs (auto) Nucleated RBC % Differential Comment Diff Path Review PT INR APTT Sodium 135 L Potassium 4.0 Chloride 102 Carbon Dioxide 26.0 Anion Gap 7 BUN 19 H Creatinine 0.91 Estim Creat Clear Calc 81.60 Est GFR (MDRD) Af Amer 107 Est GFR (MDRD) Non-Af 88 BUN/Creatinine Ratio 20.9 H Glucose 212 H Lactic Acid Calcium 8.1 L Total Bilirubin 0.50 AST 22 ALT 22 Alkaline Phosphatase 61 Troponin I B-Natriuretic Peptide Total Protein 7.1 Albumin 2.9 L Globulin 4.2 Albumin/Globulin Ratio 0.7 L Procalcitonin Micro: Microbiology 06/14/20 16:35 Influenza Types A,B Direct FA (SULMA) - Final Mucosa - Nasopharyngeal 06/14/20 16:40 SARS-CoV-2 Antigen (Rapid) - Final Nasal Secretion SARS-CoV-2 (COVID 19) ABG Data ABG results: ABG 06/14/20 17:18 Specimen Type ART Sample Site R Radial pH 7.44 Bicarbonate Actual 21.5 L Total CO2 23 Base Excess -3 L O2 Saturation 98 O2 % 40 ABG pCO2 32.0 L ABG pO2 99 O2 Delivery Device BiPAP POC PEEP 8 Clinical Comments 15 8 Radiology Impression Chest X-Ray 06/14/20 17:30 IMPRESSION: Basilar atelectasis. Cardiomegaly. Electronically Signed: Dylan Escalante DO at 18:36 EDT Tel [phone], Service support , Chest CTA 06/14/20 17:43 IMPRESSION: No demonstrated pulmonary embolism or arterial dissection. Hyperaerated lungs. Patchy interstitial densities and infiltrates. Subcentimeter mediastinal nodes. Electronically Signed: Dylan Escalante DO at 19:09 EDT Tel [phone], Service support , Charges/Coding Visit Charges Inpatient E&M: 99529 Init Hosp L2
--- NOTE | 2020-06-15 11:34 | PN.HOSP_ITS ---
Objective Data Objective Data Vital Signs: Vital Signs Temp Pulse Resp BP Pulse Ox 97.5 F L 50 L 18 147/60 H 94 06/15/20 08:20 06/15/20 08:20 06/15/20 08:20 06/15/20 08:20 06/15/20 08:20 Oxygen Flow Rate (L/min) 3 Oxygen Delivery Method Nasal Cannula Weight: 236 lb 12.8 oz Body Mass Index (BMI) 33.0 Intake & Output: Intake and Output for Last 24 Hours 06/13/20 06/14/20 06/15/20 23:59 23:59 23:59 Intake Total 1360 / 1360 Output Total 550 / 550 Balance 810 / 810 Lab / Micro Data Result Diagrams: 06/15/20 05:35 06/15/20 05:35 Labs: Laboratory Results - last 24 hr 06/14/20 06/14/20 06/14/20 16:30 16:30 16:30 WBC 3.5 L RBC 4.88 Hgb 14.3 Hct 43.7 MCV 89.5 MCH 29.3 MCHC 32.7 RDW Std Deviation 45.0 H RDW Coeff of [place] 13.7 Plt Count 174 MPV 9.0 Immature Gran % (Auto) 2.300 H Neut % (Auto) 66.4 Lymph % (Auto) 22.1 [place] % (Auto) 8.0 Eos % (Auto) 0.3 Baso % (Auto) 0.9 Absolute Neuts (auto) 2.3 Absolute Lymphs (auto) 0.77 L Nucleated RBC % 0 Differential Comment Diff Path Review PT 13.1 INR 1.1 APTT 33.1 Sodium 133 L Potassium 3.8 Chloride 100 Carbon Dioxide 25.0 Anion Gap 8 BUN 15 Creatinine 0.94 Estim Creat Clear Calc 76.58 Est GFR (MDRD) Af Amer 102 Est GFR (MDRD) Non-Af 85 BUN/Creatinine Ratio 16.0 Glucose 130 H Lactic Acid Calcium 8.1 L Total Bilirubin 0.60 AST 29 ALT 25 Alkaline Phosphatase 75 Troponin I 0.055 H B-Natriuretic Peptide Total Protein 7.7 Albumin 3.3 Globulin 4.4 H Albumin/Globulin Ratio 0.8 L Procalcitonin 06/14/20 06/14/20 06/14/20 16:30 16:30 20:50 WBC RBC Hgb Hct MCV MCH MCHC RDW Std Deviation RDW Coeff of [place] Plt Count MPV Immature Gran % (Auto) Neut % (Auto) Lymph % (Auto) [place] % (Auto) Eos % (Auto) Baso % (Auto) Absolute Neuts (auto) Absolute Lymphs (auto) Nucleated RBC % Differential Comment Diff Path Review PT INR APTT Sodium Potassium Chloride Carbon Dioxide Anion Gap BUN Creatinine Estim Creat Clear Calc Est GFR (MDRD) Af Amer Est GFR (MDRD) Non-Af BUN/Creatinine Ratio Glucose Lactic Acid 1.2 Calcium Total Bilirubin AST ALT Alkaline Phosphatase Troponin I B-Natriuretic Peptide 298.7 H Total Protein Albumin Globulin Albumin/Globulin Ratio Procalcitonin 0.05 06/14/20 06/14/20 06/15/20 20:50 23:55 05:35 WBC 2.0 L RBC 4.58 L Hgb 13.1 Hct 40.9 MCV 89.3 MCH 28.6 MCHC 32.0 RDW Std Deviation 45.2 H RDW Coeff of [place] 13.9 Plt Count 146 L MPV 9.0 Immature Gran % (Auto) 2.000 H Neut % (Auto) 71.4 H Lymph % (Auto) 19.1 [place] % (Auto) 7.0 Eos % (Auto) 0.0 Baso % (Auto) 0.5 Absolute Neuts (auto) 1.4 L Absolute Lymphs (auto) 0.38 L Nucleated RBC % 0 Differential Comment SCANNED Diff Path Review May foll PT INR APTT Sodium Potassium Chloride Carbon Dioxide Anion Gap BUN Creatinine Estim Creat Clear Calc Est GFR (MDRD) Af Amer Est GFR (MDRD) Non-Af BUN/Creatinine Ratio Glucose Lactic Acid Calcium Total Bilirubin AST ALT Alkaline Phosphatase Troponin I 0.056 H 0.041 B-Natriuretic Peptide Total Protein Albumin Globulin Albumin/Globulin Ratio Procalcitonin 06/15/20 05:35 WBC RBC Hgb Hct MCV MCH MCHC RDW Std Deviation RDW Coeff of [place] Plt Count MPV Immature Gran % (Auto) Neut % (Auto) Lymph % (Auto) [place] % (Auto) Eos % (Auto) Baso % (Auto) Absolute Neuts (auto) Absolute Lymphs (auto) Nucleated RBC % Differential Comment Diff Path Review PT INR APTT Sodium 135 L Potassium 4.0 Chloride 102 Carbon Dioxide 26.0 Anion Gap 7 BUN 19 H Creatinine 0.91 Estim Creat Clear Calc 81.60 Est GFR (MDRD) Af Amer 107 Est GFR (MDRD) Non-Af 88 BUN/Creatinine Ratio 20.9 H Glucose 212 H Lactic Acid Calcium 8.1 L Total Bilirubin 0.50 AST 22 ALT 22 Alkaline Phosphatase 61 Troponin I B-Natriuretic Peptide Total Protein 7.1 Albumin 2.9 L Globulin 4.2 Albumin/Globulin Ratio 0.7 L Procalcitonin Micro: Microbiology 06/14/20 16:35 Mucosa - Nasopharyngeal Influenza Types A,B Direct FA (SULMA) - Final 06/14/20 16:40 Nasal Secretion SARS-CoV-2 Antigen (Rapid) - Final SARS-CoV-2 (COVID 19) ABG Data ABG results: ABG 06/14/20 17:18 Specimen Type ART Sample Site R Radial pH 7.44 Bicarbonate Actual 21.5 L Total CO2 23 Base Excess -3 L O2 Saturation 98 O2 % 40 ABG pCO2 32.0 L ABG pO2 99 O2 Delivery Device BiPAP POC PEEP 8 Clinical Comments 15 8 Radiography Diagnostic Testing: Radiology Impression Chest X-Ray 06/14/20 17:30 IMPRESSION: Basilar atelectasis. Cardiomegaly. Electronically Signed: Dylan Escalante DO at 18:36 EDT Tel [phone], Service support , Chest CTA 06/14/20 17:43 IMPRESSION: No demonstrated pulmonary embolism or arterial dissection. Hyperaerated lungs. Patchy interstitial densities and infiltrates. Subcentimeter mediastinal nodes. Electronically Signed: Dylan Escalante DO at 19:09 EDT Tel [phone], Service support , Assessment & Plan Assessment/Plan (1) Severe acute respiratory syndrome (SARS): Status: Acute Code(s): B97.21 - SARS-associated coronavirus as the cause of diseases classified elsewhere (2) Hypoxia: Status: Acute Code(s): R09.02 - Hypoxemia (3) Hyponatremia: Status: Acute Code(s): E87.1 - Hypo-osmolality and hyponatremia (4) Elevated troponin level not due myocardial infarction: Status: Acute Code(s): R77.8 - Other specified abnormalities of plasma proteins Plan: Indeterminate (5) COVID-19 determined by clinical diagnostic criteria: Status: Acute Code(s): U07.1 - COVID-19 Plan: Summary: 69-year-old male with past medical history of COPD, hypertension who presented with progressive shortness of breath that began 1 month ago. This was associated with fatigue, malaise, productive cough taht appeared to have improved midway through the month with restart of productive cough again. His COVID-19 rapid antigen test was positive. Chest x-ray showed cardiomegaly, basilar atelectasis. CTA of the chest was negative for acute PE, showed bilateral groundglass opacities. His management has been that of hypoxia/acute COVID-19 pneumonia. His initial BNpep was 298.7. BNPep this morning is 588.8 . EKG shows NSR, no acute ST-T changes [employer] consulted. We will continue on oxygen, wean off for SPO2 more than 94%. Encourage use of incentive spirometer Continue on Decadron, breathing treatments Lasix 40mg IV BID Repeat blood work in am Visit Charges Inpatient E&M: 67351 Subs Hosp L3
[2020-06-15 12:26] LABS: BNP,B-Type NATRIURETIC PEPTIDE 588.8 pg/mL (0-100)
[2020-06-15] MEDS: Furosemide 40 MG/4 ML Vial IV ×2 (13:26→17:23)
[2020-06-15] MEDS: MELATONIN 3 MG TABLET PO (22:43)
[2020-06-16] VITALS (10 sets, daily range): BP systolic 107–148; BP diastolic 56–121; PULSE 35–96; RESP 18–24; TEMP 36.2–36.6; O2SAT 92–95
[2020-06-16] MEDS: Ipratropium/Albuterol Sulfate 3 ML AMPUL.NEB INHALATION ×3 (06:55→19:37)
--- NOTE | 2020-06-16 07:04 | PN.CC_ITS ---
Assessment & Plan Assessment/Plan (1) COVID-19: Status: Acute Code(s): U07.1 - COVID-19 Plan: RECOMMENDATIONS: 1. Wean supplemental oxygen to maintain saturations at or above 90%. 2. Continue Decadron to complete treatment course. 3. Continue scheduled bronchodilators. 4. Continue Lovenox as ordered. 5. Continue IV diuretic therapy as tolerated by hemodynamics and renal function. 6. Encourage incentive spirometer use and mobilize patient as tolerated. IMPRESSIONS: 1. Acute hypoxic respiratory insufficiency secondary to COVID-19 in the setting of COPD/asthma overlap syndrome Although the patient was admitted to the hospital with COVID-19 pneumonia, he was outside of the window for remdesivir administration. Therefore, the patient will be continued on Decadron to complete a 10-day treatment course. Supplemental oxygen will be continued to maintain oxygen saturations at or above 90%. Continue prophylactic Lovenox in gentle diuresis as tolerated by hemodynamics and renal function. Anticipate home-going supplemental oxygen need. 2. Chronic systolic CHF/elevated troponin Patient last EF of 45%. Patient does not appear to be volume overloaded at this time. Given COVID-19, both relative volume restriction would be indicated. Okay to continue with baseline medications otherwise. Clinical suspicion for elevated troponin secondary to global hypoxia. 3. Obesity/delayed presentation/psoriasis/hypertension Complicates care, management, recovery and prognosis. Okay to continue with baseline medications. This note was generated with [employer] dictation software. It may contain incorrect words, spelling, and punctuation that were not noted in checking the note before signing. Subjective Subjective: The patient was seen and examined at the bedside this morning. Events from the last 24 hours have been reviewed. The patient is currently afebrile, hemodynamically stable and maintaining appropriate oxygen saturations on 3 L/min via nasal cannula. No overnight issues were identified by the nursing staff. Objective Data Objective Data The patient's most recent lab work, culture data and imaging studies have all been personally reviewed. Surface echocardiogram dated August 2019 revealed an ejection fraction of 45% with stage I diastolic dysfunction. Rapid coronavirus antigen testing was positive on June 14. Blood cultures have demonstrated no growth to date. Vital Signs: Vital Signs Temp Pulse Resp BP Pulse Ox 97.5 F L 35 L 18 127/64 H 94 06/16/20 02:31 06/16/20 06:56 06/16/20 06:56 06/16/20 02:31 06/16/20 06:56 Oxygen Flow Rate (L/min) 3 Oxygen Delivery Method Nasal Cannula Weight: 236 lb 12.8 oz Body Mass Index (BMI) 33.0 Intake & Output: Intake and Output for Last 24 Hours 06/14/20 06/15/20 06/16/20 23:59 23:59 23:59 Intake Total 1360 / 1360 1120 / 1120 240 / 240 Output Total 550 / 550 1350 / 1350 550 / 550 Balance 810 / 810 -230 / -230 -310 / -310 Lab / Micro Data Result Diagrams: 06/18/20 06:55 06/18/20 06:55 Labs: Laboratory Results - last 24 hr 06/14/20 06/15/20 20:50 05:35 B-Natriuretic Peptide 588.8 H Procalcitonin 0.05 Micro: Microbiology 06/14/20 16:30 Blood Culture (Wb) - Left Hand Blood Culture - Preliminary 06/14/20 16:35 Mucosa - Nasopharyngeal Influenza Types A,B Direct FA (SULMA) - Final 06/14/20 16:40 Nasal Secretion SARS-CoV-2 Antigen (Rapid) - Final SARS-CoV-2 (COVID 19) Physical Exam Const alert, oriented x3 and no apparent distress HEENT normocephalic and head/scalp atraumatic Eyes PERRL and EOMs intact bilaterally Neck no lymphadenopathy Resp normal respiratory effort Auscultation: diminished lung sounds Cardio regular rate and regular rhythm GI normal to inspection, nondistended, normoactive bowel sounds Extremity no clubbing, cyanosis or edema Skin no rashes or lesions noted Neuro oriented x3 and CN's II-XII intact bilaterally Psych cooperative and affect normal Charges/Coding Visit Charges Inpatient E&M: 37448 Subs Hosp L3
[2020-06-16] MEDS: Acetaminophen 325 MG Tablet 650 MG PO ×3 (10:00→22:29)
[2020-06-16] MEDS: Enoxaparin 30 MG/0.3 ML Syringe SC ×2 (10:02→22:28)
[2020-06-16] MEDS: guaiFENesin 1,200 MG Tablet 1200 MG PO ×2 (10:02→22:28)
[2020-06-16] MEDS: dexAMETHasone 10 MG/ML Vial 6 MG IV (10:03)
[2020-06-16] MEDS: Furosemide 40 MG/4 ML Vial IV ×2 (10:03→17:44)
[2020-06-16] MEDS: 0.9% Saline Lock 10 ML Syringe IV ×2 (10:04→17:44)
--- NOTE | 2020-06-16 10:31 | PCM.PN.HOSP ---
Subjective Subjective: Patient seen and examined. He said he felt better than when he came in. He is still coughing but is not productive. He is on 4 L of oxygen and is not on oxygen at home. Review of systems otherwise negative. He has remained hemodynamically stable. Objective Data Objective Data Vital Signs: Vital Signs Temp Pulse Resp BP Pulse Ox 97.9 F 55 L 20 H 110/56 L 92 06/16/20 09:54 06/16/20 09:54 06/16/20 09:54 06/16/20 09:54 06/16/20 09:54 Oxygen Flow Rate (L/min) 3.5 Oxygen Delivery Method Nasal Cannula Weight: 236 lb 12.8 oz Body Mass Index (BMI) 33.0 Intake & Output: Intake and Output for Last 24 Hours 06/14/20 06/15/20 06/16/20 23:59 23:59 23:59 Intake Total 1360 / 1360 1120 / 1120 240 / 240 Output Total 550 / 550 1350 / 1350 550 / 550 Balance 810 / 810 -230 / -230 -310 / -310 Lab / Micro Data Result Diagrams: 06/15/20 05:35 06/15/20 05:35 Labs: Laboratory Results - last 24 hr 06/15/20 05:35 B-Natriuretic Peptide 588.8 H Micro: Microbiology 06/14/20 16:30 Blood Culture (Wb) - Left Hand Blood Culture - Preliminary 06/14/20 16:35 Mucosa - Nasopharyngeal Influenza Types A,B Direct FA (SULMA) - Final 06/14/20 16:40 Nasal Secretion SARS-CoV-2 Antigen (Rapid) - Final SARS-CoV-2 (COVID 19) Physical Exam Const alert, oriented x3 and no apparent distress Exam Limitations: no limitations Nutritional Appearance: obese and other HEENT head/scalp atraumatic Head and Scalp: normocephalic Mouth: dry mucous membranes Eyes PERRL Neck no lymphadenopathy Resp Resp Narrative: Diminished breath sounds bibasilarly. No wheezes or crackles. On 4-5 L of oxygen by nasal cannula. Cardio Cardio Narrative: Bradycardic. Normal first and second heart sounds, no murmurs Extremity normal to inspection, full ROM and no clubbing, cyanosis or edema Skin no rashes or lesions noted and no wounds Neuro oriented x3, CN's II-XII intact bilaterally, moves all extremities and no focal motor deficits Sensorium / Orientation: awake and alert Psych affect normal Assessment & Plan Assessment/Plan (1) COVID-19: Status: Acute Code(s): U07.1 - COVID-19 (2) Hyponatremia: Status: Acute Code(s): E87.1 - Hypo-osmolality and hyponatremia (3) Acute respiratory failure with hypoxia: Status: Acute Code(s): J96.01 - Acute respiratory failure with hypoxia Plan: #Acute hypoxic respiratory failure due to COVID 19 infection -still on 4-5L of oxygen -on decadron. Didnt receive remdesivir as symptoms started ~ 4 weeks prior to admission titrate oxygen to maintain sats >90% breathing treatment with bronchodilators -critical care on board -being diuresed with IV lasix 40mg bid. BNP is 588. #COVID 19 pneumonia: as above #Acute hypo-osmolar hypotonic hyponatremia -resolved. Sodium is 135. #Leucopenia -wbc is down to 2 today. Likely due to COVID> Platelets are down to 146, and Hb is 13.1. -will trend DVT prophylaxis: lovenox 30mg bid Visit Charges Inpatient E&M: 82628 Subs Hosp L3
--- NOTE | 2020-06-16 13:13 | CASEMGMT ---
BETHANIE VERDE assessment: Phone interview with patient for initial transition planning/care coordination assessment. RN CM introduced self and role at [facility], pt voices understanding and consents to assessment. Pt is tachypnic on phone on 3.5L at this time. Pt is A/Ox4 and answers all questions appropriately. Pt states has already been fully vaccinated. Care providers, pharmacy, and demographics verified. Presentation: Was seen at pulmonary office by Silvia on 06/12 for coughing/SOB and states qualified for oxygen but can't be set up until next week Admitting dx: JANIA PCP: Fritz Gasca Specialists: Erick/gretchen Sims Preferred Pharmacy: [facility] Insurance: [employer] A/B, [employer] [place] Prescription Benefit: Per pt, does not have Rx coverage and is interested in Rx assistance info. Jhoan SW aware, voices understanding. Living Will/HPOA: Pt states has a LW but unsure about HPOA. Pt is aware that his LW is not on file at [facility]. LNOK: Annel Oh, Living Arrangements: Pt states lives with in home with 3-4 steps in and states no concerns at home. Pt is independent with ADL's. Transportation: Pt states drives self and states no transportation concerns. DME/HHC: Pt states has the following DME: cane, walker, shower chair and states no need for any further DME. Call to pulmonary office and pt did qualify for 3L w/ exertion and order was faxed to [facility] for same. Call to [facility] to speak with laundry manager and she is unsure why oxygen was never set up for pt on . She apologizes to pt thru this RN CM and pt is updated at this time, voices understanding. Pt states he would prefer to go with another company and after provided the verbal list of local DME companies, pt chooses [employer], if he qualifies for home oxygen at discharge. Dr. Gasca updated, voices understanding. Pt states no hx of HHC or SNF in the past. Pt states no concerns with going home at time of discharge. Pt states his does 'help me at home.' Pt states is retired. Pt states quit smoking cigarettes 10-11 years ago when he found out he had COPD. Pt states does not drink ETOH. Pt states no further concerns/needs. CM to follow for home oxygen, therapy notes, and any further discharge planning/needs. Advised pt to ask for CM if any further questions/concerns/needs arise, voices understanding. Pt Goal: Home Plan: Home, pending home oxygen testing/therapy evals. Sandy KOVACS CM
[2020-06-16 13:46] LABS: Pathologist Review Reviewed
--- NOTE | 2020-06-16 14:30 | CASEMGMT ---
[facility] palliative screening tool completed and pt does not qualify at this time. SStaten RN CM
--- NOTE | 2020-06-16 16:15 | CASEMGMT ---
Social Work Note SW received referral for RX assistance resources. SW put together packet of RX assistance resources including Elisha Xion[facility], [employer], [place] [id number], RX assistance programs, Prescription Home and Good Rx. Pt is COVID+. SW provided RN with RX assistance resources and asked RN to provide to pt. RN to do so. Isis Knox HAIRCUTTER, LOAN ANALYST
--- NOTE | 2020-06-16 17:01 | NURSING ---
TALKED WITH JEFFRY- AND GAVE UPDATE ON CARMINE PELAYO
--- NOTE | 2020-06-16 21:03 | EKG12_ITS ---
Test Reason : RHYTHM CHANGE Blood Pressure : / mmHG Vent. Rate : 095 BPM Atrial Rate : 095 BPM P-R Int : 194 ms QRS Dur : 096 ms QT Int : 366 ms P-R-T Axes : 034 -30 061 degrees QTc Int : 459 ms Sinus rhythm with occasional Premature ventricular complexes Left axis deviation Voltage criteria for left ventricular hypertrophy Abnormal ECG When compared with ECG of 14-JUN-2020 17:19, Premature ventricular complexes are now Present Confirmed by LUKAS BREAUX, YAKELIN ([id number]), social media editor ABHISHEK MARCUM ([id number]) on 06/19/2020 9:11:36 AM Referred By: GEOVANNY JAY Confirmed By:YAKELIN GAYTAN MD
[2020-06-16] MEDS: MELATONIN 3 MG TABLET PO (22:29)
[2020-06-17] VITALS (16 sets, daily range): BP systolic 118–136; BP diastolic 58–86; PULSE 86–101; RESP 17–24; TEMP 35.9–36.6; O2SAT 85–96
[2020-06-17] MEDS: Acetaminophen 325 MG Tablet 650 MG PO ×2 (04:38→10:28)
--- NOTE | 2020-06-17 06:36 | PCM.PN.INT ---
Assessment & Plan Assessment/Plan (1) COVID-19: Status: Acute Code(s): U07.1 - COVID-19 Plan: RECOMMENDATIONS: 1. Wean supplemental oxygen to maintain saturations at or above 90%. 2. Continue Decadron to complete treatment course. 3. Continue scheduled bronchodilators. 4. Continue Lovenox as ordered. 5. Continue IV diuretic therapy as tolerated by hemodynamics and renal function. 6. Encourage incentive spirometer use and mobilize patient as tolerated. IMPRESSIONS: 1. Acute hypoxic respiratory insufficiency secondary to COVID-19 in the setting of COPD/asthma overlap syndrome Although the patient was admitted to the hospital with COVID-19 pneumonia, he was outside of the window for remdesivir administration. Therefore, the patient will be continued on Decadron to complete a 10-day treatment course. Supplemental oxygen will be continued to maintain oxygen saturations at or above 90%. Continue prophylactic Lovenox in gentle diuresis as tolerated by hemodynamics and renal function. Anticipate home-going supplemental oxygen need. 2. Chronic systolic CHF/elevated troponin Patient last EF of 45%. Patient does not appear to be volume overloaded at this time. Given COVID-19, both relative volume restriction would be indicated. Okay to continue with baseline medications otherwise. Clinical suspicion for elevated troponin secondary to global hypoxia. 3. Obesity/delayed presentation/psoriasis/hypertension Complicates care, management, recovery and prognosis. Okay to continue with baseline medications. This note was generated with [employer] dictation software. It may contain incorrect words, spelling, and punctuation that were not noted in checking the note before signing. Subjective Subjective: The patient was seen and examined at the bedside this morning. Events from the last 24 hours have been reviewed. The patient is currently afebrile, hemodynamically stable and maintaining appropriate oxygen saturations on 3.5 L via nasal cannula. Nursing staff did report issues with ectopy overnight. Objective Data Objective Data The patient's most recent lab work, culture data and imaging studies have all been personally reviewed. Surface echocardiogram dated August 2019 revealed an ejection fraction of 45% with stage I diastolic dysfunction. Rapid coronavirus antigen testing was positive on June 14. Blood cultures have demonstrated no growth to date. Vital Signs: Vital Signs Temp Pulse Resp BP Pulse Ox 97.3 F L 93 20 H 123/70 H 93 06/17/20 02:00 06/17/20 04:00 06/17/20 02:00 06/17/20 02:00 06/17/20 02:00 Oxygen Flow Rate (L/min) 3.5 Oxygen Delivery Method Nasal Cannula Weight: 236 lb 12.8 oz Body Mass Index (BMI) 33.0 Intake & Output: Intake and Output for Last 24 Hours 06/15/20 06/16/20 06/17/20 23:59 23:59 23:59 Intake Total 1120 / 1120 1090 / 1090 Output Total 1350 / 1350 3000 / 3000 500 / 500 Balance -230 / -230 -1910 / -1910 -500 / -500 Lab / Micro Data Attestation: I reviewed the patient's lab results. Result Diagrams: 06/18/20 06:55 06/18/20 06:55 Labs: Laboratory Results - last 24 hr 06/15/20 05:35 Diff Path Review Reviewed Micro: Microbiology 06/14/20 16:30 Blood Culture (Wb) - Left Hand Bacteria Detection (PCR) - Preliminary Coag Negative Staph 06/14/20 16:30 Blood Culture (Wb) - Left Hand Blood Culture - Preliminary 06/14/20 16:35 Mucosa - Nasopharyngeal Influenza Types A,B Direct FA (SULMA) - Final 06/14/20 16:40 Nasal Secretion SARS-CoV-2 Antigen (Rapid) - Final SARS-CoV-2 (COVID 19) Physical Exam Const alert, oriented x3 and no apparent distress General Appearance: cooperative HEENT normocephalic and head/scalp atraumatic Eyes PERRL, EOMs intact bilaterally and conjunctivae normal Neck no lymphadenopathy, supple, no JVD and no carotid bruits Resp normal respiratory effort, no use of accessory muscles and clear to auscultation bilaterally Effort and Inspection: prolonged expiratory phase Auscultation: diminished lung sounds; Negative for rales, rhonchi or wheezes Cardio regular rate, regular rhythm, S1 normal heart sound, S2 normal heart sound, no murmurs, no rub and no gallops GI normal to inspection, nondistended, normoactive bowel sounds and soft to palpation Extremity normal capillary refill and no clubbing, cyanosis or edema Skin no rashes or lesions noted Neuro oriented x3, CN's II-XII intact bilaterally and no focal motor deficits Psych cooperative and affect normal Charges/Coding Visit Charges Inpatient E&M: 33673 Subs Hosp L2
[2020-06-17 07:18] LABS: Anion Gap 7 (5-15); BUN 29 mg/dL (7-18); BUN/Creat Ratio 31.8 RATIO (10-20); Calcium,Total 8.7 mg/dL (8.5-10.1); Chloride 101 mmol/L (98-107); Creatinine, Serum 0.91 mg/dL (0.70-1.30); EST Glomerular Filtration Rate 87 mL/min (>60); Est Glom Filt Rate - Afr Amer 106 mL/min (>60); Glucose 129 mg/dL (74-106); Magnesium 2.4 mg/dL (1.6-2.6); Potassium 3.5 mmol/L (3.5-5.1); Sodium Level 136 mmol/L (136-145)
[2020-06-17] MEDS: Ipratropium/Albuterol Sulfate 3 ML AMPUL.NEB INHALATION ×2 (07:31→19:00)
[2020-06-17] MEDS: dexAMETHasone 10 MG/ML Vial 6 MG IV (10:28)
[2020-06-17] MEDS: Enoxaparin 30 MG/0.3 ML Syringe SC ×2 (10:28→21:15)
[2020-06-17] MEDS: Furosemide 40 MG/4 ML Vial IV ×2 (10:29→16:55)
[2020-06-17] MEDS: guaiFENesin 1,200 MG Tablet 1200 MG PO ×2 (10:29→21:15)
--- NOTE | 2020-06-17 15:22 | PCM.PN.HOSP ---
Subjective Subjective: Patient seen and examined. He wanted to be discharged home today. Patient is still tachypneic and requiring 4 L of oxygen. He tells me he thinks this is baseline because he thinks he was supposed to be on oxygen at home but this has just not been started. He thinks he should have been on oxygen because of his COPD. He has otherwise remained hemodynamically stable but patient gets very tachypneic up to the mid 20s when he exerts himself. Objective Data Objective Data Vital Signs: Vital Signs Temp Pulse Resp BP Pulse Ox 97.8 F 98 18 118/73 94 06/17/20 12:40 06/17/20 12:40 06/17/20 12:40 06/17/20 12:40 06/17/20 12:40 Oxygen Flow Rate (L/min) [ 6 AMBULATING with Oxygen #3] Oxygen Flow Rate (L/min) [ 5 AMBULATING with Oxygen #2] Oxygen Flow Rate (L/min) [ 4 AMBULATING with Oxygen #1] Oxygen Flow Rate (L/min) [At 3.5 REST with Oxygen] Oxygen Flow Rate (L/min) 4 Oxygen Delivery Method Nasal Cannula Weight: 236 lb 12.8 oz Body Mass Index (BMI) 33.0 Intake & Output: Intake and Output for Last 24 Hours 06/15/20 06/16/20 06/17/20 23:59 23:59 23:59 Intake Total 1120 / 1120 1090 / 1090 Output Total 1350 / 1350 3000 / 3000 1100 / 1100 Balance -230 / -230 -1910 / -1910 -1100 / -1100 Lab / Micro Data Result Diagrams: 06/15/20 05:35 06/17/20 06:53 Labs: Laboratory Results - last 24 hr 06/17/20 06:53 Sodium 136 Potassium 3.5 Chloride 101 Carbon Dioxide 28.0 Anion Gap 7 BUN 29 H Creatinine 0.91 Estim Creat Clear Calc 81.60 Est GFR (MDRD) Af Amer 106 Est GFR (MDRD) Non-Af 87 BUN/Creatinine Ratio 31.8 H Glucose 129 H Calcium 8.7 Magnesium 2.4 Micro: Microbiology 06/14/20 16:58 Blood Culture (Wb) #2 - Anticubital Right Blood Culture - Preliminary No growth in 48 hours. 06/14/20 16:30 Blood Culture (Wb) - Left Hand Bacteria Detection (PCR) - Final Coag Negative Staph 06/14/20 16:30 Blood Culture (Wb) - Left Hand Blood Culture - Final 06/14/20 16:35 Mucosa - Nasopharyngeal Influenza Types A,B Direct FA (SULMA) - Final 06/14/20 16:40 Nasal Secretion SARS-CoV-2 Antigen (Rapid) - Final SARS-CoV-2 (COVID 19) Physical Exam Narrative Alert and oriented x3 Nontraumatic; normocephalic Lung sounds are diminished Heart sounds S1-S2. Tachycardia. No murmur, gallop or rubs. Abdomen bowel sounds present soft, nontender nondistended Extremity without edema cyanosis or clubbing. Const alert, oriented x3 and no apparent distress Exam Limitations: no limitations Nutritional Appearance: obese and other HEENT head/scalp atraumatic Eyes PERRL Neck no lymphadenopathy Resp Resp Narrative: Diminished breath sounds bibasilarly. No wheezes or crackles. On 4 L of oxygen by nasal cannula. tachypneic Cardio regular rate Cardio Narrative: Normal first and second heart sounds, no murmurs GI normal to inspection, nondistended, normoactive bowel sounds, soft to palpation and non-tender Extremity normal to inspection, full ROM and no clubbing, cyanosis or edema Skin no rashes or lesions noted and no wounds Neuro oriented x3, CN's II-XII intact bilaterally, moves all extremities and no focal motor deficits Sensorium / Orientation: awake and alert Psych affect normal Assessment & Plan Assessment/Plan (1) Acute respiratory failure with hypoxia: Status: Acute Code(s): J96.01 - Acute respiratory failure with hypoxia (2) COVID-19: Status: Acute Code(s): U07.1 - COVID-19 Plan: #Acute hypoxic respiratory failure due to COVID 19 infection -still on 4L of oxygen -on decadron. Didnt receive remdesivir as symptoms started ~ 4 weeks prior to admission -titrate oxygen to maintain sats >90% -breathing treatment with bronchodilators -critical care on board -being diuresed with IV lasix 40mg bid. BNP is 588. -Patient required 6 L of oxygen with ambulation on even with the was only up to 87% of oxygen. He also reported chest heaviness with ambulation and was very tachypneic. Plan to discharge held. #COVID 19 pneumonia: as above #Acute hypo-osmolar hypotonic hyponatremia -resolved. #Leucopenia DVT prophylaxis: lovenox 30mg bid Disposition: For likely discharge home tomorrow. Visit Charges Inpatient E&M: 53526 Subs Hosp L2
--- NOTE | 2020-06-17 15:43 | CASEMGMT ---
Therapy is recommending HHC and rollator for pt. Call to pt in room and he declines HHC and rollator at this time. Pt states has canes and walker at home and states will assist. Pt states that he needs to get out of here tomorrow d/t his daughter is at [facility] and they just called in Hospice. Pt states 'all I need to get out of here is the oxygen.' Amarjit MORFIN updated, voices understanding. Pt voices no further questions/concerns/needs. Sandy KOVACS CM
[2020-06-17] MEDS: Acetaminophen 500 MG Tablet 1000 MG PO ×2 (16:55→23:13)
[2020-06-17] MEDS: MELATONIN 3 MG TABLET PO (21:15)
[2020-06-17] MEDS: 0.9% Saline Lock 10 ML Syringe IV (21:16)
[2020-06-18] VITALS (10 sets, daily range): BP systolic 108–136; BP diastolic 65–86; PULSE 67–85; RESP 18–22; TEMP 35.8–36.4; O2SAT 80–96
--- NOTE | 2020-06-18 02:49 | NURSING ---
Pt arrived to Room 116 at 02:35.
[2020-06-18] MEDS: Acetaminophen 500 MG Tablet 1000 MG PO (06:12)
[2020-06-18 07:14] LABS: Absolute Lymphocyte Count 0.61 X10^3/uL (0.83-4.51); Absolute Neutrophil Count 5.9 X10^3/uL (2.0-7.7); Basophil# 0.02 X10^3/uL; Basophil% 0.3 % (0-1); Hematocrit 43.6 % (40-54); Lymphocyte # 0.61 X10^3/ul (0.83-4.51); Lymphocyte % 8.6 % (19-41); Mean Corp Hgb Conc 32.1 g/dL (32-36); Mean Corpuscular Hgb 29.2 pg (27.0-32.0); Mean Corpuscular Volume 90.8 fL (80-94); Mean Platelet Vol. 9.1 fl (6.2-12.0); Monocyte# 0.47 X10^3/uL; Monocyte% 6.7 % (0-10); NRBC Flagged by Analyzer 0 % (0-5); Neutrophil # 5.87 X10^3/uL (2.7-7.7); Neutrophil % 83.1 % (47-70); Platelet Count 222 K/mm3 (150-450); RBC Distribution Width CV 13.5 % (11.6-14.6); RBC Distribution Width SD 45.2 fl (35.1-43.9); White Blood Count 7.1 K/mm3 (4.4-11.0)
[2020-06-18 07:42] LABS: Anion Gap 5 (5-15); BUN 31 mg/dL (7-18); BUN/Creat Ratio 32.9 RATIO (10-20); Calcium,Total 8.7 mg/dL (8.5-10.1); Chloride 99 mmol/L (98-107); Creatinine, Serum 0.94 mg/dL (0.70-1.30); EST Glomerular Filtration Rate 84 mL/min (>60); Est Glom Filt Rate - Afr Amer 102 mL/min (>60); Estimated Creatinine Clearance 78.99 ml/min; Glucose 119 mg/dL (74-106); Potassium 3.7 mmol/L (3.5-5.1); Sodium Level 138 mmol/L (136-145)
[2020-06-18] MEDS: dexAMETHasone 10 MG/ML Vial 6 MG IV (11:04)
[2020-06-18] MEDS: Enoxaparin 30 MG/0.3 ML Syringe SC (11:05)
[2020-06-18] MEDS: Furosemide 40 MG/4 ML Vial IV (11:05)
[2020-06-18] MEDS: guaiFENesin 1,200 MG Tablet 1200 MG PO (11:05)
[2020-06-18] MEDS: 0.9% Saline Lock 10 ML Syringe IV (11:06)
--- NOTE | 2020-06-18 11:19 | CASEMGMT ---
Pt qualified for home O2 and had chose [employer]. Referral faxed to [facility] [place] and made tc to Brittney to confirm receipt. TC to pt room. He is aware that O2 will be coming. He again stated he did not want the rollator or HHC that was recommended. He is aware that if he changes his mind, he may contact his PCP to order. Pt verbalizes understanding.
--- NOTE | 2020-06-18 12:04 | PCM.PN.INT ---
Assessment & Plan Assessment/Plan (1) COVID-19: Status: Acute Code(s): U07.1 - COVID-19 Plan: RECOMMENDATIONS: 1. Wean supplemental oxygen to maintain saturations at or above 90%. 2. Continue Decadron to complete treatment course. 3. Continue scheduled bronchodilators. 4. Continue Lovenox as ordered. 5. Recommend holding diuretics today, as the patient appears to be developing a contraction alkalosis. 6. Encourage incentive spirometer use and mobilize patient as tolerated. IMPRESSIONS: 1. Acute hypoxic respiratory insufficiency secondary to COVID-19 in the setting of COPD/asthma overlap syndrome Although the patient was admitted to the hospital with COVID-19 pneumonia, he was outside of the window for remdesivir administration. Therefore, the patient will be continued on Decadron to complete a 10-day treatment course. Supplemental oxygen will be continued to maintain oxygen saturations at or above 90%. Continue prophylactic Lovenox. At this time, recommend holding diuretic therapy, given development of contraction alkalosis. Perform walking oximetry study prior to consideration for discharge home. 2. Chronic systolic CHF/elevated troponin Patient last EF of 45%. Patient does not appear to be volume overloaded at this time. Given COVID-19, both relative volume restriction would be indicated. Okay to continue with baseline medications otherwise. Clinical suspicion for elevated troponin secondary to global hypoxia. 3. Obesity/delayed presentation/psoriasis/hypertension Complicates care, management, recovery and prognosis. Okay to continue with baseline medications. This note was generated with [employer] dictation software. It may contain incorrect words, spelling, and punctuation that were not noted in checking the note before signing. Subjective Subjective: The patient was seen and examined at the bedside this morning. Events from the last 24 hours have been reviewed. The patient is currently afebrile, hemodynamically stable and maintaining appropriate oxygen saturations on 4L via nasal cannula. The patient is currently documented to be overall net -2.6 L for the hospital admission. He remains on scheduled bronchodilators, Decadron and IV Lasix. Bicarbonate is elevated to 34 this morning. Creatinine remains stable. Objective Data Objective Data The patient's most recent lab work, culture data and imaging studies have all been personally reviewed. Surface echocardiogram dated August 2019 revealed an ejection fraction of 45% with stage I diastolic dysfunction. Rapid coronavirus antigen testing was positive on June 14. Blood cultures have demonstrated no growth to date. Vital Signs: Vital Signs Temp Pulse Resp BP Pulse Ox 97.5 F L 67 18 108/65 85 06/18/20 10:20 06/18/20 10:20 06/18/20 10:20 06/18/20 10:20 06/18/20 10:39 Oxygen Flow Rate (L/min) [ 6 AMBULATING with Oxygen #3] Oxygen Flow Rate (L/min) [ 5 AMBULATING with Oxygen #2] Oxygen Flow Rate (L/min) [ 4 AMBULATING with Oxygen #1] Oxygen Flow Rate (L/min) [At 4 REST with Oxygen] Oxygen Flow Rate (L/min) 4 Oxygen Delivery Method Nasal Cannula Weight: 229 lb 0.964 oz Body Mass Index (BMI) 33.0 Intake & Output: Intake and Output for Last 24 Hours 06/16/20 06/17/20 06/18/20 23:59 23:59 23:59 Intake Total 1090 / 1090 590 / 590 Output Total 3000 / 3000 1875 / 1875 Balance -1910 / -1910 -1875 / -1525 590 / 590 Lab / Micro Data Attestation: I reviewed the patient's lab results. Result Diagrams: 06/18/20 06:55 06/18/20 06:55 Labs: Laboratory Results - last 24 hr 06/18/20 06/18/20 06:55 06:55 WBC 7.1 RBC 4.80 Hgb 14.0 Hct 43.6 MCV 90.8 MCH 29.2 MCHC 32.1 RDW Std Deviation 45.2 H RDW Coeff of [place] 13.5 Plt Count 222 MPV 9.1 Immature Gran % (Auto) 1.300 H Neut % (Auto) 83.1 H Lymph % (Auto) 8.6 L [place] % (Auto) 6.7 Eos % (Auto) 0.0 Baso % (Auto) 0.3 Absolute Neuts (auto) 5.9 Absolute Lymphs (auto) 0.61 L Nucleated RBC % 0 Sodium 138 Potassium 3.7 Chloride 99 Carbon Dioxide 34.0 H Anion Gap 5 BUN 31 H Creatinine 0.94 Estim Creat Clear Calc 78.99 Est GFR (MDRD) Af Amer 102 Est GFR (MDRD) Non-Af 84 BUN/Creatinine Ratio 32.9 H Glucose 119 H Calcium 8.7 Micro: Microbiology 06/14/20 16:30 Blood Culture (Wb) - Left Hand Bacteria Detection (PCR) - Final Coag Negative Staph 06/14/20 16:30 Blood Culture (Wb) - Left Hand Blood Culture - Final Coag Negative Staph 06/14/20 16:58 Blood Culture (Wb) #2 - Anticubital Right Blood Culture - Preliminary No growth in 48 hours. 06/14/20 16:35 Mucosa - Nasopharyngeal Influenza Types A,B Direct FA (SULMA) - Final 06/14/20 16:40 Nasal Secretion SARS-CoV-2 Antigen (Rapid) - Final SARS-CoV-2 (COVID 19) Physical Exam Const alert, oriented x3 and no apparent distress General Appearance: cooperative HEENT normocephalic and head/scalp atraumatic Eyes PERRL, EOMs intact bilaterally and conjunctivae normal Neck no lymphadenopathy, supple, no JVD and no carotid bruits Resp normal respiratory effort, no use of accessory muscles and clear to auscultation bilaterally Effort and Inspection: prolonged expiratory phase Auscultation: diminished lung sounds; Negative for rales, rhonchi or wheezes Cardio regular rate, regular rhythm, S1 normal heart sound, S2 normal heart sound, no murmurs, no rub and no gallops GI normal to inspection, nondistended, normoactive bowel sounds and soft to palpation Extremity normal capillary refill and no clubbing, cyanosis or edema Skin no rashes or lesions noted Neuro oriented x3, CN's II-XII intact bilaterally and no focal motor deficits Psych cooperative and affect normal Charges/Coding Visit Charges Inpatient E&M: 48283 Subs Hosp L2
--- NOTE | 2020-06-18 12:45 | PCM.DC ---
Discharge Instructions Outpatient Procedure Reason For Visit: SARS COV-2 Diet Discharge Diet: Low fat / Low cholesterol Activity Discharge Activity: Return to Normal Activity Weight Bearing Status: Weight bearing as tolerated Dressing / Incision Call your doctor if you observe: Fever of 101 or Higher, Shortness of breath, Swelling in the ankles, Chest pain, Increased palpitations (irregular heartbeat) and Calf discomfort Follow Up Care When: PCP in 1-2 weeks. Test Results: Test results from this visit will be discussed in further detail at your follow-up appointment, if applicable. Discharge Plan Admission Admit Date/Time: 06/14/20 19:27 Primary Reason for Your Visit: COVID 19 infection Attending Provider: Aisha De La Torre Primary Care Provider: Fritz Gasca Consulting Providers: Jose A Suarez ; Conner Gasca ; Bethany Castellanos LAND MANAGEMENT FORESTER Instructions Patient Instructions: Coronavirus Disease 2019 (COVID-19): Overview, Coronavirus Disease 2019 (COVID-19): Caring for Yourself or Others Additional Instructions / Restrictions: use oxygen 4L for shortness of breath as needed; to remain in self isolation till 07/04/2020 Discharge Orders/Prescriptions Prescriptions: New dexamethasone 6 mg tablet 6 mg PO DAILY Qty: 6 RF: 0 guaifenesin 600 mg tablet extended release 12hr 1,200 mg PO BID Qty: 30 RF: 0 Continued ipratropium-albuterol 0.5 mg-3 mg(2.5 mg base)/3 mL solution for nebulization 3 ml INHALATION 6XD Qty: 180 RF: 5 budesonide [Pulmicort] 0.5 mg/2 mL suspension for nebulization 0.5 mg INHALATION BID Qty: 60 RF: 6 albuterol sulfate [Ventolin HFA] 90 mcg/actuation HFA aerosol inhaler 2 puff inhalation Q6H PRN (Reason: shortness of breath or wheezing) Qty: 8.5 RF: 6 Referrals: Jose A Suarez MD [STAFF PHYSICIAN] - Within 2 Weeks Fritz Gasca MD [Primary Care Provider] - Within 1 Week Disposition Disposition (needs filled in before D/C Order can be placed): Home, self care
--- NOTE | 2020-06-18 15:01 | PCM.DC.SUM ---
Providers Date of Admission: 06/14/20 Primary Care Physician: Dr. Fritz Gasca MD Consultations 06/15/20 07:25 Consult: Fire Pot Operator / Pulmonary Medicine Routine Consulting Provider: Pulmonary Medicine nathan Jessica Reason for Consult: COVID EMERGENT Consult: No MD Notified: Yes Date Notified:: 06/15/20 Time Notified: 07:26 Method of Notification: Verbal Method of Consult:: In-Person Reason For Visit: SARS COV-2 Diagnosis Discharge Diagnosis (1) COVID-19: Status: Acute Code(s): U07.1 - COVID-19 (2) Acute respiratory failure with hypoxia: Status: Acute Code(s): J96.01 - Acute respiratory failure with hypoxia Medications at Discharge Home Medications ipratropium 0.5 mg-albuterol 3 mg (2.5 mg base)/3 mL nebulization soln 3 ml INHALATION 6XD #180 ml 12/17/19 albuterol sulfate 90 mcg/actuation aerosol inhaler 2 puff INHALATION Q6H PRN #8.5 g 06/12/20 budesonide 0.5 mg/2 mL suspension for nebulization 0.5 mg INHALATION BID #60 ml 06/12/20 dexamethasone 6 mg PO DAILY #6 tab 06/18/20 guaifenesin 1,200 mg PO BID #30 tab 06/18/20 Hospital Course Operations None Procedures None Summary of Care Provided Minutes Spent on Discharge: 50 Hospital Course: Patient is a 69-year-old male with a past medical history significant for severe COPD and hypertension. He was admitted through the ED on 06/14/2020, with a complaint of persistent shortness of breath for 4 weeks prior to admission. He had associated fatigue, myalgia, malaise and productive cough. Sputum previously been yellow and green and was now clear he also reported hypoxia at home. He also had an associated fever of about 104 Fahrenheit as well as chills. He has been seen at his housing coordinator office 2 days prior to admission and he had had an outpatient prescription for oxygen sent on account of a 6-minute walk test done but oxygen was yet to be delivered to patient. Covid test done on admission was positive. CTA of the chest done showed patchy interstitial densities and infiltrates as well as subcentimeter mediastinal nodes but no evidence of PE. He was admitted and managed for acute hypoxic respiratory failure due to COVID-19 infection. He was started on IV dexamethasone. He was not a candidate for remdesivir as his symptoms have been going on for about 4 weeks. He was initially admitted to the ICU and critical care was consulted. He was also started on diuresis with IV Lasix. Blood cultures were obtained which showed no growth. Patient's respiratory status gradually improved and he was transferred out of the ICU. Patient remained stable and was discharged on 06/18/2020. He had a walking pulse ox checked which showed that he dropped to 85% on room air and required 4 L of oxygen to go up to 92%. He was therefore discharged home on 4 L of oxygen. He was discharged with a prescription for p.o. dexamethasone 6 mg daily for 6 days to complete a 10-day course. He was counseled to remain in self-isolation until July 03, 2020. He is to follow-up with his primary care doctor and follow-up with pulmonology. Patient was seen and examined prior to discharge. He had no complaints and felt well. Review systems otherwise negative. Labs and vitals reviewed. Medication reviewed and reconciled. Physical Exam Narrative Alert and oriented x3 Nontraumatic; normocephalic Lung sounds are diminished Heart sounds S1-S2. Tachycardia. No murmur, gallop or rubs. Abdomen bowel sounds present soft, nontender nondistended Extremity without edema cyanosis or clubbing. Const alert, oriented x3 and no apparent distress General Appearance: cooperative and comfortable Exam Limitations: no limitations Nutritional Appearance: obese and other HEENT head/scalp atraumatic Eyes PERRL Neck no lymphadenopathy Resp Resp Narrative: Diminished breath sounds bibasilarly. No wheezes or crackles. On 4 L of oxygen by nasal cannula. Cardio regular rate, regular rhythm, S1 normal heart sound and S2 normal heart sound Cardio Narrative: Normal first and second heart sounds, no murmurs GI normal to inspection, nondistended, normoactive bowel sounds, soft to palpation and non-tender Extremity normal to inspection, full ROM and no clubbing, cyanosis or edema Skin no rashes or lesions noted and no wounds Neuro oriented x3, CN's II-XII intact bilaterally, moves all extremities and no focal motor deficits Sensorium / Orientation: awake and alert Psych affect normal ABG / Lab / Microbiology Data Result Diagrams: 06/18/20 06:55 06/18/20 06:55 Laboratory: Laboratory Results - last 24 hr 06/18/20 06/18/20 06:55 06:55 WBC 7.1 RBC 4.80 Hgb 14.0 Hct 43.6 MCV 90.8 MCH 29.2 MCHC 32.1 RDW Std Deviation 45.2 H RDW Coeff of [place] 13.5 Plt Count 222 MPV 9.1 Immature Gran % (Auto) 1.300 H Neut % (Auto) 83.1 H Lymph % (Auto) 8.6 L [place] % (Auto) 6.7 Eos % (Auto) 0.0 Baso % (Auto) 0.3 Absolute Neuts (auto) 5.9 Absolute Lymphs (auto) 0.61 L Nucleated RBC % 0 Sodium 138 Potassium 3.7 Chloride 99 Carbon Dioxide 34.0 H Anion Gap 5 BUN 31 H Creatinine 0.94 Estim Creat Clear Calc 78.99 Est GFR (MDRD) Af Amer 102 Est GFR (MDRD) Non-Af 84 BUN/Creatinine Ratio 32.9 H Glucose 119 H Calcium 8.7 Microbiology: Microbiology 06/14/20 16:30 Bacteria Detection (PCR) - Final Blood Culture (Wb) - Left Hand Coag Negative Staph Blood Culture - Final Coag Negative Staph Microbiology 06/14/20 16:30 Blood Culture (Wb) - Left Hand Bacteria Detection (PCR) - Final Coag Negative Staph 06/14/20 16:30 Blood Culture (Wb) - Left Hand Blood Culture - Final Coag Negative Staph 06/14/20 16:58 Blood Culture (Wb) #2 - Anticubital Right Blood Culture - Preliminary No growth in 48 hours. 06/14/20 16:35 Mucosa - Nasopharyngeal Influenza Types A,B Direct FA (SULMA) - Final 06/14/20 16:40 Nasal Secretion SARS-CoV-2 Antigen (Rapid) - Final SARS-CoV-2 (COVID 19) D/C Instructions Discharge Diet: Low fat / Low cholesterol Discharge Activity: Return to Normal Activity Weight Bearing Status: Weight bearing as tolerated Call your doctor if you observe: Fever of 101 or Higher, Shortness of breath, Swelling in the ankles, Chest pain, Increased palpitations (irregular heartbeat) and Calf discomfort When: PCP in 1-2 weeks. Meaningful Use Info Meaningful Use Diagnoses (Choose all that apply): None applicable Discharge Plan Admission Admit Date/Time: 06/14/20 19:27 Primary Reason for Your Visit: COVID 19 infection Attending Provider: Aisha De La Torre Primary Care Provider: Fritz Gasca Consulting Providers: Jose A Suarez ; Conner Gasca ; Bethany Castellanos JUNIOR NETWORK ENGINEER Instructions Patient Instructions: Coronavirus Disease 2019 (COVID-19): Overview, Coronavirus Disease 2019 (COVID-19): Caring for Yourself or Others Additional Instructions / Restrictions: use oxygen 4L for shortness of breath as needed; to remain in self isolation till 07/04/2020 Discharge Orders/Prescriptions Prescriptions: New dexamethasone 6 mg tablet 6 mg PO DAILY Qty: 6 RF: 0 guaifenesin 600 mg tablet extended release 12hr 1,200 mg PO BID Qty: 30 RF: 0 Continued ipratropium-albuterol 0.5 mg-3 mg(2.5 mg base)/3 mL solution for nebulization 3 ml INHALATION 6XD Qty: 180 RF: 5 budesonide [Pulmicort] 0.5 mg/2 mL suspension for nebulization 0.5 mg INHALATION BID Qty: 60 RF: 6 albuterol sulfate [Ventolin HFA] 90 mcg/actuation HFA aerosol inhaler 2 puff inhalation Q6H PRN (Reason: shortness of breath or wheezing) Qty: 8.5 RF: 6 Referrals: Jose A Suarez MD [STAFF PHYSICIAN] - 07/21/20 2:15 pm (You will be on a cancellation list to get a closer appointment. Please call the office if you have any problems.) Fritz Gasca MD [Primary Care Provider] - Within 1 Week Disposition Disposition (needs filled in before D/C Order can be placed): Home, self care Visit Charges Inpatient E&M: 83518 Disch Hosp
--- NOTE | 2020-06-19 12:54 | CASEMGMT ---
BETHANIE VERDE Discharge Follow-Up Phone Call. Lace: 12 Strata: 3 Discharge Date: 06/18/20 Adm Dx: COVID Attempted discharge f/u phone call. No answer. Recording w/pt's name identified came on. VM left for pt to return call to RN AMMON if he has any questions/concerns/needs. Phone number provided. Maricruz LAGUNAS RN CM
== END 2020-06-18 15:51 | disposition home or self-care (01) | DRG 177 ==
LOC: ED 19:22 → ICU 19:35 → PCU 06-18 02:12
PROVIDERS: Internal Medicine; Internal Medicine Critical Care Medicine; Admitting Provider Hospitalist; Emergency Provider Emergency Medicine; PCP Family Medicine; Visit Provider Student in an Organized Health Care Education/Training Program
DX: U07.1 COVID-19 (principal); J96.01 Acute respiratory failure with hypoxia; J12.82 Pneumonia due to coronavirus disease 2019; J44.0 Chronic obstructive pulmonary disease with (acute) lower respiratory infection; E87.1 Hypo-osmolality and hyponatremia; I50.32 Chronic diastolic (congestive) heart failure; I11.0 Hypertensive heart disease with heart failure; J45.40 Moderate persistent asthma, uncomplicated; E66.9 Obesity, unspecified; Z68.33 Body mass index [BMI] 33.0-33.9, adult; Z79.899 Other long term (current) drug therapy; Z87.891 Personal history of nicotine dependence; Z79.51 Long term (current) use of inhaled steroids
CPT/HCPCS: 36415; 36600; 71045; 71275; 80048; 80053; 82803; 83605; 83735; 83880; 84145; 84484; 85025; 85610; 85730; 87040; 87149; 87426; 87804; 93005; 94002; 94640; 97162; 97166; 97530; 97535; 99285; J7030; Q9967; A4216; J1940

== ENCOUNTER → 2020-06-30 10:03 | Outpatient (CLI) | payer MEDICARE, OTHER, SELFPAY ==
[2020-06-14 20:15] VITALS: BMI 33.0
--- NOTE | 2020-06-30 10:08 | RAD_ITS ---
STUDY: X-RAY - PELVIS AND RIGHT HIP REASON FOR EXAM: Male, 69 years old. Pain and stiffness TECHNIQUE: 3 views of the pelvis and hip. COMPARISON: None. FINDINGS: There is a non-specific bowel gas pattern. Normal visualized soft tissue structures. There is narrowing with cortical sclerosis and osteophyte formation of the sacroiliac joint consistent with degenerative osteoarthritic changes. Normal bilateral superior and inferior pubic rami. Normal pubic symphysis. Normal bilateral ischial tuberosities. Normal visualized femoral head. Normal acetabulum. There is moderate articular joint space narrowing of the hip. RAD/HIP, UNI W/ Pelvis 2-3 Views IMPRESSION: Age consistent degenerative changes, no acute findings. Electronically Signed: Ubaldo Hurt MD at 10:30 EDT , Service support ,
== END ==
PROVIDERS: PCP Family Medicine; Referring Provider Family Medicine; Visit Provider Family Medicine
DX: S79.919A Unspecified injury of unspecified hip, initial encounter (principal); X58.XXXA Exposure to other specified factors, initial encounter; M16.11 Unilateral primary osteoarthritis, right hip
CPT/HCPCS: 73502

== ENCOUNTER → 2020-11-03 10:22 | Outpatient (CLI) | payer MEDICARE, OTHER, SELFPAY ==
--- NOTE | 2020-11-05 10:32 | PFT ---
INTRODUCTION: The patient is a 69-year-old male that presents for pulmonary function studies secondary to a diagnosis of COPD. Respiratory therapy reported good patient effort. Bronchodilators were used during testing. INTERPRETATION: Forced expiration spirometry demonstrates the presence of a severe large airways obstructive ventilatory defect. There was a significant response to aerosolized bronchodilators. Spirograms are of good quality but do not plateau indicating slow emptying of the lungs. Body plethysmography was performed and revealed an elevated RV to 191% of predicted, indicative of underlying air trapping. Diffusing capacity by single breath CO is reduced at 48% of predicted. IMPRESSION: Partially reversible severe large airways obstructive ventilatory defect with associated air trapping and symmetric reduction in diffusing capacity.
== END ==
PROVIDERS: PCP Family Medicine; Referring Provider Internal Medicine Critical Care Medicine; Visit Provider Internal Medicine Critical Care Medicine
DX: J44.1 Chronic obstructive pulmonary disease with (acute) exacerbation (principal); J45.40 Moderate persistent asthma, uncomplicated; E66.9 Obesity, unspecified
CPT/HCPCS: 94060; 94726; 94729

== ENCOUNTER → 2020-11-04 12:19 | Outpatient (CLI) | payer MEDICARE, OTHER, SELFPAY ==
[2020-11-04 13:19] VITALS: PULSE 48; PULSE 49; PULSE 50; PULSE 52; O2SAT 87; O2SAT 94; O2SAT 95; O2SAT 96; O2SAT 97; O2SAT 98
--- NOTE | 2020-11-07 10:44 | PCM.PSN.6M ---
PSN 6 Minute Walk Test 6 Minute Walk Test 6 Minute Walk Test: 6 Minute Walk Test PSN:6-Minute Walk Test Start: 11/04/20 13:19 Freq: Status: Active Protocol: [id number] Document 11/04/20 13:19 [facility], [facility] (Rec: 11/04/20 13:25 [facility]MERLY [facility], [facility]1983 [id number]) 6 Minute Walk Test Date Performed 11/04/20 Time Performed 12:30 Height 5 ft 10 in Weight: 106.594 kg Weight in Pounds 235.[address]: Jose A Suarez Assistive device used: Walker Pre-test Oxygen Delivery Method Room Air Pulse Ox (%) 94 Pulse Rate (60-100 beats/min) 52 L Dyspnea Monique Scale (0-10) 2 1st minute Oxygen Delivery Method Room Air Pulse Ox (%) 87 Pulse Rate (60-100 beats/min) 49 L Dyspnea Monique Scale (0-10) 3 Number of Rests Taken 1 Reported Symptoms Increased Work of Breathing 2nd minute Oxygen Flow Rate (L/min) (L/min) 2 Oxygen Delivery Method Nasal Cannula Pulse Ox (%) 94 Pulse Rate (60-100 beats/min) 50 L Dyspnea Monique Scale (0-10) 4 Number of Rests Taken 1 Reported Symptoms Increased Work of Breathing 3rd minute Oxygen Flow Rate (L/min) (L/min) 2 Oxygen Delivery Method Nasal Cannula Pulse Ox (%) 95 Pulse Rate (60-100 beats/min) 48 L Dyspnea Monique Scale (0-10) 4 Number of Rests Taken 0 Reported Symptoms Increased Work of Breathing 4th minute Oxygen Flow Rate (L/min) (L/min) 2 Oxygen Delivery Method Nasal Cannula Pulse Ox (%) 96 Pulse Rate (60-100 beats/min) 49 L Dyspnea Monique Scale (0-10) 5 Number of Rests Taken 1 Reported Symptoms Increased Work of Breathing 5th minute Oxygen Flow Rate (L/min) (L/min) 2 Oxygen Delivery Method Nasal Cannula Pulse Ox (%) 97 Pulse Rate (60-100 beats/min) 50 L Dyspnea Monique Scale (0-10) 4 Number of Rests Taken 1 Reported Symptoms Increased Work of Breathing 6th minute Oxygen Flow Rate (L/min) (L/min) 2 Oxygen Delivery Method Nasal Cannula Pulse Ox (%) 98 Pulse Rate (60-100 beats/min) 48 L Dyspnea Monique Scale (0-10) 3 Number of Rests Taken 0 Reported Symptoms Increased Work of Breathing Post-test Oxygen Delivery Method Room Air Pulse Ox (%) 95 Pulse Rate (60-100 beats/min) 48 L Dyspnea Monique Scale (0-10) 2 Full Laps Walked 6 Partial Lap, Number of Tiles Walked 17 Total Distance Walked (ft) 371 Interpretation Interpretation: The patient ambulated 371 feet over the course of 6 minutes beginning on room air with the use of a wheeled walker. Pretesting oxygen saturation was noted to be 94% on room air. With ambulation, the neal oxygen saturation was 87%. 2 L/min of supplemental oxygen was applied and the patient was able to complete the remainder of the test, while maintaining appropriate oxygen saturations. This testing indicated the presence of impaired walk distance and significant exertional oxygen desaturation. Recommendations Recommendations: 2 L/min of supplemental oxygen should be utilized with exertion.
== END ==
PROVIDERS: PCP Family Medicine; Referring Provider Internal Medicine Critical Care Medicine; Visit Provider Internal Medicine Critical Care Medicine
DX: J41.1 Mucopurulent chronic bronchitis (principal); J45.40 Moderate persistent asthma, uncomplicated; E66.9 Obesity, unspecified
CPT/HCPCS: 94618

== ENCOUNTER → 2021-06-22 | Outpatient (CLI) | payer MEDICARE, OTHER, SELFPAY ==
--- NOTE | 2021-06-22 12:58 | CT_ITS ---
STUDY: LOW DOSE CT LUNG CANCER SCREENING REASON FOR EXAM: Male, 70 years old. Smoker and gt; 40 pack years quit 2009 RADIATION DOSAGE (If Supplied By Facility): CTDIvol = ( 3.18 ) mGy, DLP = ( 114.77 ) mGycm TECHNIQUE: No contrast was administered. Low dose technique was utilized (average mAS-38 and kVp 120). 1.25 mm axial source images with a slice interval of 1.25-mm were reconstructed in lung windows. 2.5 mm axial source images with a slice interval of 2.5-mm were reconstructed in lung windows. 5.0 mm axial source images with a slice interval of 5.0-mm were reconstructed in soft tissue windows. COMPARISON: Comparison is made with prior study dated 06/14/2020. NODULES: No suspicious nodules are seen. Emphysema: Hyperinflation. Mild degree of diffuse emphysematous changes. Endobronchial lesion: None Aorta: Atherosclerotic plaque formation. CORONARY ARTERIES: Coronary artery calcification Heart: Unremarkable. Pulmonary artery: Unremarkable. Mediastinal nodes: Small mediastinal lymph nodes. Other chest and abdominal findings: CT/Low Dose CT Lung Screening IMPRESSION: Lung-RADS category 2 - Continue annual screening with LDCT in 12 months. IMPORTANT NOTES FOR USE: ACR Lung-RADS Version 1.1 Assessment Categories Release Date: 2018 Category: Coded 0-4 bases on nodule(s) with highest degree of suspicion. Negative screen is defined as categories 1 and 2; a positive screen is defined as categories 3 and 4. Category 3 and 4A nodules that are unchanged on interval CT should be coded as category 2, and individuals returned to screening in 12 months. Category 4X: Category 3 or 4 nodules with additional imaging findings that increase the suspicion of lung cancer, such as spiculation, GGN that doubles in size in 1 year, enlarged lymph notes, etc. Category Modifiers: S (significant finding unrelated to lung cancer) Electronically Signed: Ricardo Salgado MD at 13:30 EDT ,
== END | disposition home or self-care (01) ==
LOC: CT 12:52
PROVIDERS: PCP Family Medicine; Referring Provider Nurse Practitioner Acute Care; Visit Provider Nurse Practitioner Acute Care
DX: Z12.2 Encounter for screening for malignant neoplasm of respiratory organs (principal); F17.210 Nicotine dependence, cigarettes, uncomplicated
CPT/HCPCS: 71271

== ENCOUNTER 2022-02-09 21:01 | Inpatient (IN) | payer MEDICARE, OTHER, SELFPAY ==
[2022-02-09 21:03] VITALS: BP 140/83; PULSE 117; RESP 24; TEMP 37.8; O2SAT 85; BMI 34.7
[2022-02-09 21:30] VITALS: BP 140/97; PULSE 95; RESP 28; TEMP 37.8; O2SAT 95; O2SAT 96
[2022-02-09] MEDS: Acetaminophen 500 MG Tablet 1000 MG PO (21:33)
[2022-02-09] MEDS: Ipratropium/Albuterol Sulfate 3 ML AMPUL.NEB INHALATION (21:41)
[2022-02-09] MEDS: Albuterol 2.5 MG/3 ML VIAL.NEB. INHALATION (21:42)
[2022-02-09 21:44] VITALS: PULSE 116; RESP 23
--- NOTE | 2022-02-09 21:50 | ED.VIS.DYS ---
HPI History of Present Illness Chief Complaint: Shortness of Breath Narrative Narrative: 71-year-old male presenting with shortness of breath. He has a history of COPD, CHF, asthma. Patient states he had symptoms since [place]. Apparently his grandson had a fever and congestion and a cough and recovered. He does complain of dyspnea on exertion. He has dyspnea at rest also. Apparently the patient has had fevers at home but had not been telling anybody. He has breathing treatments at home but has not been doing these. He states he wears 4 L via nasal cannula when he sleeps. He also reports that he sometimes uses during the day. Patient denies chest pain. He denies abdominal pain or nausea and vomiting. He denies headache. He does have decreased p.o. intake. He states he does not feel like eating. PFSH PFSH Medical History Asthma-COPD overlap syndrome COVID-19 determined by clinical diagnostic criteria Essential hypertension Gastric ulcer with hemorrhage (1983) HFrEF (heart failure with reduced ejection fraction) Osteoarthritis Other psoriasis Severe acute respiratory syndrome () Smoking greater than 40 pack years Home Medications albuterol sulfate 90 mcg/actuation aerosol inhaler (Ventolin HFA) 2 puff inhalation Q4H PRN shortness of breath or wheezing 08/25/20 [History Last Taken Unknown] furosemide 40 mg tablet 40 mg PO DAILY #90 tabs 08/29/20 [Rx Last Taken Unknown] aspirin 81 mg chewable tablet 81 mg PO DAILY 01/15/21 [History Last Taken Unknown] atorvastatin 80 mg tablet 80 mg PO DAILY 01/15/21 [History Last Taken Unknown] metoprolol succinate 25 mg tablet,extended release 24 hr 50 mg PO DAILY 01/15/21 [History Last Taken Unknown] spironolactone 25 mg tablet 25 mg PO DAILY 01/15/21 [History Last Taken Unknown] budesonide-formoterol HFA 160 mcg-4.5 mcg/actuation aerosol inhaler (Symbicort) 2 puff inhalation BID #1 ea 01/16/21 [Rx Last Taken Unknown] mexiletine 150 mg capsule 150 mg PO TID 09/16/21 [History Last Taken Unknown] sacubitril 49 mg-valsartan 51 mg tablet (Entresto) 1 tab PO BID 02/09/22 [History Last Taken Unknown] Allergy/AdvReac Type Severity Reaction Status Date / Time No Known Allergies Allergy Verified 02/09/22 21:05 Family History Father Myocardial infarction Grandmother Diabetes Other CAD (coronary artery disease) Surgical History History of tonsillectomy Social History household members: spouse housing: other details: Mobile home number of children: 4 pets and animals: Yes pets and animals: dog(s) Smoking Status: Former smoker quit date: 02/14/09 alcohol intake: former ROS ROS ED Constitutional Constitutional ED: Reports fever(s) Eyes Eyes: Denies change in vision or diplopia ENT ENT ED: Reports rhinorrhea Cardiovascular Cardiovascular: Reports orthopnea; Denies chest pain or palpitations Respiratory/Chest Respiratory/Chest: Reports cough, dyspnea, dyspnea on exertion and orthopnea Gastrointestinal Gastrointestinal: Reports abdominal pain; Denies nausea or vomiting Genitourinary Genitourinary ED: Denies dysuria or hematuria Musculoskeletal Musculoskeletal: Denies arthralgias Integumentary Denies abscess Neurologic Neurologic: Reports weakness; Denies headache(s) Psychiatric Psychiatric: Denies anxiety or depression EXAM Physical Exam Const Vital Signs: 02/09/22 21:03 02/09/22 21:44 02/09/22 21:30 Temperature 100.0 F H Temperature Source Temporal Pulse Rate 117 H 116 H Respiratory Rate 24 H 23 H 28 H Respiratory Pattern Tachypnea Blood Pressure 140/83 H Blood Pressure Mean 102 Pulse Ox 85 96 Oxygen Delivery Method Room Air Room Air Oxygen Flow Rate (L/min) 2 02/09/22 21:30 02/09/22 21:30 02/09/22 22:19 Temperature 100.0 F H Temperature Source Oral Pulse Rate 95 Respiratory Rate 28 H 20 H Respiratory Pattern Blood Pressure 140/97 H Blood Pressure Mean 111 Pulse Ox 96 96 95 Oxygen Delivery Method Nasal Cannula Nasal Cannula Nasal Cannula Oxygen Flow Rate (L/min) 2 2 2 02/09/22 22:19 02/09/22 23:34 Temperature 99 F 99.0 F Temperature Source Oral Oral Pulse Rate 118 H 106 H Respiratory Rate 20 H 24 H Respiratory Pattern Blood Pressure 124/69 H 109/66 Blood Pressure Mean 87 80 Pulse Ox 95 95 Oxygen Delivery Method Nasal Cannula Nasal Cannula Oxygen Flow Rate (L/min) 2 2 Positive well nourished and obese General Appearance ED: Negative for pallor Nutritional Appearance: obese HEENT Reports moist mucous membranes Eyes PERRL and EOMs intact bilaterally General Eye ED: Negative for pale conjunctiva or scleral icterus Neck no lymphadenopathy and supple Resp Effort and Inspection: symmetric chest movement, tachypneic, respiratory distress and uses accessory muscles Auscultation: diminished lung sounds diffuse; Negative for rhonchi or wheezes Cardio regular rhythm Rate: tachycardic GI non-tender Back/Spine no CVA tenderness Neuro oriented x3 and CN's II-XII intact bilaterally Sensorium / Orientation: alert and oriented to person Motor Exam: strength 5/5 throughout Psych mental status grossly normal Skin General Skin Exam: Negative for jaundice or pallor MDM MDM MDM Narrative Medical decision making narrative: 71-year-old male presenting with shortness of breath, history of fevers. He has history of COPD, CHF, asthma. On examination he is not moving much air and is tachypneic and tachycardic. His temperature is 100 ?F. Septic work-up was pursued. Patient was given breathing treatments and Solu-Medrol. 1 g of Tylenol was given. Patient is normotensive at this time. CBC does not show an elevated white blood cell count. Hemoglobin hematocrit are stable. Platelets are normal. Regulation studies within normal limits. Renal function electrolytes within normal limits. Glucose elevated 201 without anion gap. Lactic acid 2.4. BNP 76. Chest x-ray on my interpretation shows a right lower lobe pneumonia. There is no evidence of CHF. On reevaluation at 11:30 PM the patient is 90% on 2 L and so was turned up to 4 L. He still tachycardic and tachypneic. He was was given a 500 cc bolus of IV fluids. Rapid COVID and influenza are negative. Patient was hypoxic on room air which is not his baseline. He states he is only supposed to wear 4 L at sleep. He was 90% on 2 L when I was in the room and I turned it up to 4 L. Given the fact that he tachycardic, tachypneic with right lower lobe pneumonia and multiple comorbidities I think he needs to be admitted to the hospital. I do not believe he is septic even though his lactic acid is little elevated. Impression: 1. COPD exacerbation 2. Right lower lobe pneumonia 3. Hypoxia 4. Lactic acidosis Lab Data Labs: Laboratory Results - last 24 hr 02/09/22 02/09/22 02/09/22 21:30 21:30 21:30 WBC 7.8 RBC 5.08 Hgb 15.3 Hct 47.6 MCV 93.7 MCH 30.1 MCHC 32.1 RDW Std Deviation 46.1 H RDW Coeff of [place] 13.4 Plt Count 174 MPV 8.9 Immature Gran % (Auto) 0.600 Neut % (Auto) 78.6 H Lymph % (Auto) 6.9 L [place] % (Auto) 12.2 H Eos % (Auto) 0.9 Baso % (Auto) 0.8 Absolute Neuts (auto) 6.1 Absolute Lymphs (auto) 0.54 L Nucleated RBC % 0 Differential Comment SCANNED PT 13.7 INR 1.1 APTT 28.6 Sodium 136 Potassium 4.1 Chloride 100 Carbon Dioxide 31.0 Anion Gap 5 BUN 13 Creatinine 1.07 Estim Creat Clear Calc 65.38 Est GFR (MDRD) Af Amer 88 Est GFR (MDRD) Non-Af 72 BUN/Creatinine Ratio 12.1 Glucose 201 H Lactic Acid Calcium 8.8 Total Bilirubin 0.60 AST 15 ALT 26 Alkaline Phosphatase 87 B-Natriuretic Peptide Total Protein 8.0 Albumin 4.1 Globulin 3.9 Albumin/Globulin Ratio 1.1 02/09/22 02/09/22 21:30 21:30 WBC RBC Hgb Hct MCV MCH MCHC RDW Std Deviation RDW Coeff of [place] Plt Count MPV Immature Gran % (Auto) Neut % (Auto) Lymph % (Auto) [place] % (Auto) Eos % (Auto) Baso % (Auto) Absolute Neuts (auto) Absolute Lymphs (auto) Nucleated RBC % Differential Comment PT INR APTT Sodium Potassium Chloride Carbon Dioxide Anion Gap BUN Creatinine Estim Creat Clear Calc Est GFR (MDRD) Af Amer Est GFR (MDRD) Non-Af BUN/Creatinine Ratio Glucose Lactic Acid 2.4 H* Calcium Total Bilirubin AST ALT Alkaline Phosphatase B-Natriuretic Peptide 76.0 Total Protein Albumin Globulin Albumin/Globulin Ratio Radiography Diagnostic Testing: Clinical Impression(s) from Imaging Studies Chest X-Ray 02/09/22 22:30 IMPRESSION: Emphysema with right lower lobe pneumonia. Electronically Signed: Tony Kwan MD at 22:52 EST , Discharge Plan Triage Chief Complaint: Shortness of Breath ED Provider: Kel Enriquez Dx/Rx/DC Orders Prescriptions: No Action furosemide 40 mg tablet 40 mg PO DAILY Qty: 90 3RF albuterol sulfate [Ventolin HFA] 90 mcg/actuation HFA aerosol inhaler 2 puff inhalation Q4H PRN (Reason: shortness of breath or wheezing) aspirin 81 mg tablet,chewable 81 mg PO DAILY atorvastatin 80 mg tablet 80 mg PO DAILY spironolactone 25 mg tablet 25 mg PO DAILY metoprolol succinate 25 mg tablet extended release 24 hr 50 mg PO DAILY mexiletine 150 mg capsule 150 mg PO TID Entresto 49-51 mg Tablet 1 tab PO BID budesonide-formoterol [Symbicort] 160-4.5 mcg/actuation HFA aerosol inhaler 2 puff inhalation BID Qty: 1 3RF Rx Instructions: administer with spacer, rinse mouth after each use Primary Care Provider: Fritz Gasca Referrals: Fritz Gasca MD [Primary Care Provider] -
[2022-02-09 21:54] LABS: Absolute Lymphocyte Count 0.54 X10^3/uL (0.83-4.51); Absolute Neutrophil Count 6.1 X10^3/uL (2.0-7.7); Basophil# 0.06 X10^3/uL; Basophil% 0.8 % (0-1); Eosinophil# 0.07 X10^3/uL; Eosinophils% 0.9 % (0-5); Hematocrit 47.6 % (40-54); Hemoglobin 15.3 g/dL (13.0-16.5); Lymphocyte # 0.54 X10^3/ul (0.83-4.51); Lymphocyte % 6.9 % (19-41); Mean Corp Hgb Conc 32.1 g/dL (32-36); Mean Corpuscular Hgb 30.1 pg (27.0-32.0); Mean Corpuscular Volume 93.7 fL (80-94); Mean Platelet Vol. 8.9 fl (6.2-12.0); Monocyte# 0.95 X10^3/uL; Monocyte% 12.2 % (0-10); NRBC Flagged by Analyzer 0 % (0-5); Neutrophil # 6.12 X10^3/uL (2.7-7.7); Neutrophil % 78.6 % (47-70); POSITIVE DIFFERENTIAL YES; Platelet Count 174 K/mm3 (150-450); RBC Distribution Width CV 13.4 % (11.6-14.6); RBC Distribution Width SD 46.1 fl (35.1-43.9); Red Blood Count 5.08 M/mm3 (4.6-6.2); White Blood Count 7.8 K/mm3 (4.4-11.0)
[2022-02-09 21:59] LABS: Differential Indicated SCAN CRITERIA MET
[2022-02-09 22:01] LABS: ALB/GLOB Ratio 1.1 RATIO (0.9-2.4); AST(SGOT) 15 U/L (15-37); Alanine Aminotransfer ALT/SGPT 26 U/L (16-61); Albumin, Serum 4.1 g/dL (3.2-5.0); Alkaline Phosphatase 87 U/L (45-117); Anion Gap 5 (5-15); BUN 13 mg/dL (7-18); BUN/Creat Ratio 12.1 RATIO (10-20); Calcium,Total 8.8 mg/dL (8.5-10.1); Chloride 100 mmol/L (98-107); Creatinine, Serum 1.07 mg/dL (0.70-1.30); EST Glomerular Filtration Rate 72 mL/min (>60); Est Glom Filt Rate - Afr Amer 88 mL/min (>60); Estimated Creatinine Clearance 65.38 ml/min; Globulin 3.9 g/dL (2.2-4.2); Glucose 201 mg/dL (74-106); Potassium 4.1 mmol/L (3.5-5.1); Sodium Level 136 mmol/L (136-145)
[2022-02-09 22:04] LABS: International Normalized Ratio 1.1; Prothrombin Time (Protime)PT. 13.7 SECONDS (11.7-14.9)
[2022-02-09 22:05] LABS: Partial Thromboplast Time 28.6 Seconds (24.1-36.2)
[2022-02-09 22:08] LABS: Lactic Acid 2.4 mmol/L (0.4-1.9)
[2022-02-09] MEDS: MethylPREDNISolone 125 MG/2 ML Vial IV (22:17)
[2022-02-09 22:19] VITALS: BP 124/69; PULSE 118; RESP 20; TEMP 37.2; O2SAT 95
--- NOTE | 2022-02-09 22:30 | RAD_ITS ---
STUDY: X-RAY CHEST REASON FOR EXAM: Male, 71 years old. fever TECHNIQUE: Single AP portable view of the chest. COMPARISON: 06/14/2020 FINDINGS: There is hyperinflation of the lungs consistent with chronic obstructive lung disease (COPD). Alveolar opacity in the lower right lung consistent with right lower lobe pneumonia. There is no demonstrated pleural abnormality. There is moderate cardiac enlargement. Normal mediastinum and nusrat. Normal visualized pulmonary arteries. Normal visualized aortic arch and descending thoracic aorta. Normal visualized thoracic spine. Normal visualized ribs, clavicles, and shoulders. There is no demonstrated abnormality of the visualized soft tissue structures of the upper abdomen. RAD/Chest 1 View (Portable) IMPRESSION: Emphysema with right lower lobe pneumonia. Electronically Signed: Tony Kwan MD at 22:52 EST ,
[2022-02-09 22:52] LABS: Differential Comment SCANNED
[2022-02-09 23:34] VITALS: BP 109/66; PULSE 106; RESP 24; TEMP 37.2; O2SAT 95
[2022-02-09 23:39] LABS: Mucous, Urine 0 SEEN /hpf (<or=2+); Red Blood Cells-Urine 0 SEEN /hpf (0-5)
--- NOTE | 2022-02-09 23:42 | PCM.HP.STD ---
HPI - General General Date of Admission: 02/09/22 Date of Service: 02/09/22 Chief Complaint: Dyspnea, cough, fevers, HPI Narrative The patient is a 71 y/o M w/ PMHx: Obesity, HTN, HLD, Hx Gastric ulcer with hemorrhage, Psoriasis, COPD/Asthma w/ Chronic Hypoxic Respiratory Failure (4L NC q HS only), Hx COVID-19, Systolic CHF, Former tobacco use who presents to the [facility] ED on 02/09/22 with history of onset of dyspnea progressively worsening since [place] reporting that his grandson unfortunately had some type of viral illness with a fever, congestion and cough but his dyspnea is progressively worsened and is even at rest, worse with exertion with fevers at home with decreased oral intake, fatigue and malaise prompting eventual ED evaluation. He does state that because of his dyspnea he has been using the oxygen during the day which is normally not how he uses it it is only at night. Work-up in the ED included T1 100, heart rate 117, BP 140/83, respiratory rate 24, initially 85% on room air with most recent vitals T 99, heart rate 106, BP 109/66, respiratory rate 24, 95% on 2 L nasal cannula, CBC with WC of 7.8, hemoglobin 15.3, platelet 174 with lymphopenia, unremarkable coags, CMP with glucose 201, lactic acid 2.4 otherwise unremarkable, BNP 76, chest x-ray with chronic COPD type changes with evidence of a right lower lobe pneumonia, respiratory SARS COVID and influenza antigen rapid negative, blood culture x2 pending per ED, urinalysis and urine culture pending per ED upon requested evaluation of patient. In the ED patient ministered Tylenol 1000 mg p.o. x1, albuterol, DuoNeb therapy, Solu-Medrol 125 mg IV x1 and normal saline 500 cc bolus. [facility] Medical History Asthma-COPD overlap syndrome COVID-19 determined by clinical diagnostic criteria Essential hypertension Gastric ulcer with hemorrhage (1983) HFrEF (heart failure with reduced ejection fraction) Osteoarthritis Other psoriasis Severe acute respiratory syndrome (SARS) Smoking greater than 40 pack years Home Medications albuterol sulfate 90 mcg/actuation aerosol inhaler (Ventolin HFA) 2 puff inhalation Q4H PRN shortness of breath or wheezing 08/25/20 [History Last Taken Unknown] furosemide 40 mg tablet 40 mg PO DAILY #90 tabs 08/29/20 [Rx Last Taken Unknown] aspirin 81 mg chewable tablet 81 mg PO DAILY 01/15/21 [History Last Taken Unknown] atorvastatin 80 mg tablet 80 mg PO DAILY 01/15/21 [History Last Taken Unknown] metoprolol succinate 25 mg tablet,extended release 24 hr 50 mg PO DAILY 01/15/21 [History Last Taken Unknown] spironolactone 25 mg tablet 25 mg PO DAILY 01/15/21 [History Last Taken Unknown] budesonide-formoterol HFA 160 mcg-4.5 mcg/actuation aerosol inhaler (Symbicort) 2 puff inhalation BID #1 ea 01/16/21 [Rx Last Taken Unknown] mexiletine 150 mg capsule 150 mg PO TID 09/16/21 [History Last Taken Unknown] sacubitril 49 mg-valsartan 51 mg tablet (Entresto) 1 tab PO BID 02/09/22 [History Last Taken Unknown] Allergy/AdvReac Type Severity Reaction Status Date / Time No Known Allergies Allergy Verified 02/09/22 21:05 Family History (Updated 02/10/22 @ 01:[address] Elisabeth Wheeler MD) Father Myocardial infarction Grandmother Diabetes Mother Glaucoma Other CAD (coronary artery disease) Surgical History (Updated 02/10/22 @ 01:[address] Elisabeth Wheeler MD) History of surgery on arm History of testicular surgery History of tonsillectomy Social History (Updated 02/10/22 @ 01:[address] Elisabeth Wheeler MD) household members: spouse housing: other details: Mobile home number of children: 4 pets and animals: Yes pets and animals: dog(s) Smoking Status: Former smoker quit date: 02/14/09 how long ago did patient quit smoking: Quit 12 years prior, smoked 1 ppd since teen until quit. alcohol intake: former substance use type: does not use ROS ROS Narrative Admission Review of Systems: CONSTITUTIONAL: No weight loss, + fever, chills, weakness or fatigue. HEENT: + Congestion, rhinorrhea, sore throat. Eyes: No visual loss, blurred vision, double vision or yellow sclerae. Ears, Nose, Throat: No hearing loss. SKIN: No rash or itching, lesions, wounds. CARDIOVASCULAR: No chest pain, chest pressure or chest discomfort, palpitations, edema, orthopnea, syncopal events. RESPIRATORY: + Shortness of breath, cough without marked sputum, wheezing, No hemoptysis. GASTROINTESTINAL: + anorexia, No nausea, vomiting or diarrhea, abdominal pain, melena, BRBPR. GENITOURINARY: No dysuria, frequency, urgency or retention. NEUROLOGICAL: No headache, dizziness, syncope, paralysis, ataxia, numbness or tingling in the extremities, focal weakness, change in bowel or bladder control, seizure. MUSCULOSKELETAL: + muscle, back pain, joint pain or stiffness. HEMATOLOGIC: No anemia, bleeding or bruising. LYMPHATICS: No enlarged nodes. No history of splenectomy. PSYCHIATRIC: No history of depression or anxiety. ENDOCRINOLOGIC: No reports of sweating, cold or heat intolerance. No polyuria or polydipsia. ALLERGIES: + history of asthma. Vital Signs Vital Signs Vital Signs: 02/09/22 21:03 02/09/22 21:44 02/09/22 21:30 Temperature 100.0 F H Temperature Source Temporal Pulse Rate 117 H 116 H Respiratory Rate 24 H 23 H 28 H Respiratory Pattern Tachypnea Blood Pressure 140/83 H Blood Pressure Mean 102 Pulse Ox 85 96 Oxygen Delivery Method Room Air Room Air Oxygen Flow Rate (L/min) 2 02/09/22 21:30 02/09/22 21:30 02/09/22 22:19 Temperature 100.0 F H Temperature Source Oral Pulse Rate 95 Respiratory Rate 28 H 20 H Respiratory Pattern Blood Pressure 140/97 H Blood Pressure Mean 111 Pulse Ox 96 96 95 Oxygen Delivery Method Nasal Cannula Nasal Cannula Nasal Cannula Oxygen Flow Rate (L/min) 2 2 2 02/09/22 22:19 02/09/22 23:34 Temperature 99 F 99.0 F Temperature Source Oral Oral Pulse Rate 118 H 106 H Respiratory Rate 20 H 24 H Respiratory Pattern Blood Pressure 124/69 H 109/66 Blood Pressure Mean 87 80 Pulse Ox 95 95 Oxygen Delivery Method Nasal Cannula Nasal Cannula Oxygen Flow Rate (L/min) 2 2 Weight Weight: 242 lb Body Mass Index (BMI) 34.7 Physical Exam Narrative Physical Examination: General: Awake, alert, oriented x 3 and cooperative, seated upright in the ED bed, fatigued, mildly ill-appearing. Skin: Normal color, normal turgor, no icterus, no cyanosis. HEENT: AT/NC, EOMI, PERRLA, moderately dry MM, no carotid bruits or JVD noted. Lungs: Significantly diminished, greater bases, very tight, no evidence of any distress, currently no rales, rhonchi or wheezing but very poor air movement. Heart: Regular rate and rhythm; no gallop, rub audible. Abdomen: Soft, obese, NTTP, ND, distant normal BS, no HSM. Extremities: No cyanosis, clubbing, or edema. Neurological: Patient awake, alert, oriented as noted, cognitive function intact; pupils equally reactive to light and accommodation, cranial nerves II-XII grossly normal, moving all 4 extremities, no focal deficits, strength moderately global decrease secondary to acute presentation complaints. Psychiatric: Affect appears fatigued, mildly ill-appearing, no acute evidence of depressive or anxiety feelings. Results Lab / Micro Data Result Diagrams: 02/09/22 21:30 02/09/22 21:30 Labs: Laboratory Results - last 24 hr 02/09/22 21:30: WBC 7.8, RBC 5.08, Hgb 15.3, Hct 47.6, MCV 93.7, MCH 30.1, MCHC 32.1, RDW Std Deviation 46.1 H, RDW Coeff of [place] 13.4, Plt Count 174, MPV 8.9, Immature Gran % (Auto) 0.600, Neut % (Auto) 78.6 H, Lymph % (Auto) 6.9 L, [place] % (Auto) 12.2 H, Eos % (Auto) 0.9, Baso % (Auto) 0.8, Absolute Neuts (auto) 6.1, Absolute Lymphs (auto) 0.54 L, Nucleated RBC % 0, Differential Comment SCANNED 02/09/22 21:30: PT 13.7, INR 1.1, APTT 28.6 02/09/22 21:30: Sodium 136, Potassium 4.1, Chloride 100, Carbon Dioxide 31.0, Anion Gap 5, BUN 13, Creatinine 1.07, Estim Creat Clear Calc 65.38, Est GFR (MDRD) Af Amer 88, Est GFR (MDRD) Non-Af 72, BUN/Creatinine Ratio 12.1, Glucose 201 H, Calcium 8.8, Total Bilirubin 0.60, AST 15, ALT 26, Alkaline Phosphatase 87, Total Protein 8.0, Albumin 4.1, Globulin 3.9, Albumin/Globulin Ratio 1.1 02/09/22 21:30: Lactic Acid 2.4 H* 02/09/22 21:30: B-Natriuretic Peptide 76.0 Micro: Microbiology 02/09/22 21:30 Nasal Secretion SARS-CoV-2 & FLU Antigen (Rapid) - Final Radiology Impression Chest X-Ray 02/09/22 22:30 IMPRESSION: Emphysema with right lower lobe pneumonia. Electronically Signed: Tony Kwan MD at 22:52 EST , Assessment & Plan Assessment/Plan (1) COPD exacerbation: PLAN: Plan The patient is a 71 y/o M w/ PMHx: Obesity, HTN, HLD, Hx Gastric ulcer with hemorrhage, Psoriasis, COPD/Asthma w/ Chronic Hypoxic Respiratory Failure (4L NC q HS only), Hx COVID-19, Systolic CHF, Former tobacco use who presents to the [facility] ED on 02/09/22 with history of onset of dyspnea progressively worsening since [place] reporting that his grandson unfortunately had some type of viral illness with a fever, congestion and cough but his dyspnea is progressively worsened and is even at rest, worse with exertion with fevers at home with decreased oral intake, fatigue and malaise prompting eventual ED evaluation. #1. Acute Hypoxia on Chronic Hypoxic Respiratory Failure secondary to Acute RLL PNA, Possibly viral and concurrent Acute on Chronic COPD/Asthma Exacerbation: Will admit to PCU, maintain on oxygen with wean as tolerated to room air while awake and 4L NC q HS, continue ATC duonebs, PRN albuterol, maintain on IV Rocephin and Azithromycin with de-escalation if work-up more consistent with viral PNA etiology, maintain on IV solumedrol, HOB, IS parameters w/ pending sputum culture, respiratory full viral panel, COVID PCR and urine antigens. #2. Chronic systolic CHF: Appears compensated, will continue aspirin, statin, metoprolol, spironolactone, Lasix, Entresto home regimen. If hydration needed will be very judicious. No prior echocardiogram noted in [facility] system but under history CHF 27% EF noted. #3. Suspected underlying cardiac arrhythmia: We will continue patient mexiletine home regimen. #4 hypertension: Continue home regimen including spironolactone, metoprolol, Lasix, Entresto, PRN hydralazine. #5. Hyperlipidemia: We will continue patient on statin therapy. #6. Obesity: Weight loss and lifestyle changes encouraged. #7. GERD: History of prior gastric ulcer with hemorrhage, will maintain on PPI. #8. Former tobacco use: Encourage continued tobacco cessation. #9. DVT prophylaxis: SCDs, Lovenox. #10. CODE status: Patient HCPOA and living will are not in place however his is present and would be his decision-maker they note. Discussed CODE status at length including difference between FULL code, DNR-CCA and DNR-CC status. Following discussions about the differences in these status, requested Full Code status. Advanced Care Planning Face to Face Time: 16 minutes. Charges/Coding Visit Charges Inpatient E&M: 07731 Init Hosp L3 Procedures Hospitalists Procedures: 58706 Advncd Care Plan 30 Min
[2022-02-09 23:43] LABS: Color, Urine Yellow (Yellow); Glucose, Dipstick 50 mg/dl (Normal); Ketone-Dipstick Negative (Negative); Leukocyte Esterase-Dipstick 100 /ul (Negative); Nitrite-Dipstick Positive (Negative); Occult Blood-Urine 150 /ul (Negative); Protein-Dipstick 100 mg/dl (Negative); Urine Bilirubin Dipstick Negative (Negative); Urine Clarity Sl. Cloudy (Clear); Urine Urobilinogen Normal (Normal)
[2022-02-10] VITALS (13 sets, daily range): BP systolic 107–145; BP diastolic 55–90; PULSE 87–109; RESP 18–24; TEMP 36.6–37.2; O2SAT 92–95; BMI 35.6
[2022-02-10 00:03] LABS: Bacteria 1+ /hpf (None Seen); Squamous Epithelial Cells - UA 0-5 SEEN /hpf (0-5); White Blood Cells 0-5 SEEN /hpf (0-5)
[2022-02-10 00:43] LABS: Troponin-I HS 15 pg/mL (3.0-78.0)
[2022-02-10 01:23] LABS: Procalcitonin 0.12 ng/mL (0.00-0.09)
[2022-02-10 01:38] LABS: Reflex Lactate? Y
[2022-02-10] MEDS: Ceftriaxone 1 GM/50 ML BAG IV ×2 (02:12→22:49)
[2022-02-10] MEDS: Azithromycin 250 MG Tablet 500 MG PO ×2 (02:13→22:50)
[2022-02-10] MEDS: 0.9% Normal Saline 1,000 ML 100 ML IV (02:13)
[2022-02-10 02:38] LABS: Lactic Acid 3.3 mmol/L (0.4-1.9)
[2022-02-10] MEDS: Mexiletine 150 MG Capsule PO ×3 (05:17→22:50)
[2022-02-10 06:35] LABS: Absolute Lymphocyte Count 0.43 X10^3/uL (0.83-4.51); Absolute Neutrophil Count 4.8 X10^3/uL (2.0-7.7); Basophil# 0.03 X10^3/uL; Basophil% 0.6 % (0-1); Hematocrit 44.7 % (40-54); Hemoglobin 14.9 g/dL (13.0-16.5); Lymphocyte # 0.43 X10^3/ul (0.83-4.51); Lymphocyte % 7.9 % (19-41); Mean Corp Hgb Conc 33.3 g/dL (32-36); Mean Corpuscular Volume 93.1 fL (80-94); Mean Platelet Vol. 8.6 fl (6.2-12.0); Monocyte% 1.8 % (0-10); NRBC Flagged by Analyzer 0 % (0-5); Neutrophil # 4.81 X10^3/uL (2.7-7.7); POSITIVE DIFFERENTIAL YES; Platelet Count 148 K/mm3 (150-450); RBC Distribution Width CV 13.4 % (11.6-14.6); RBC Distribution Width SD 46.1 fl (35.1-43.9); White Blood Count 5.4 K/mm3 (4.4-11.0)
[2022-02-10 06:47] LABS: Differential Indicated SCAN CRITERIA MET
[2022-02-10 07:06] LABS: Platelet Estimate SLT DEC (ADEQ)
[2022-02-10 07:14] LABS: ALB/GLOB Ratio 0.9 RATIO (0.9-2.4); AST(SGOT) 13 U/L (15-37); Alanine Aminotransfer ALT/SGPT 23 U/L (16-61); Albumin, Serum 3.6 g/dL (3.2-5.0); Alkaline Phosphatase 77 U/L (45-117); Anion Gap 9 (5-15); BUN 15 mg/dL (7-18); Calcium,Total 8.6 mg/dL (8.5-10.1); Chloride 98 mmol/L (98-107); Creatinine, Serum 1.15 mg/dL (0.70-1.30); EST Glomerular Filtration Rate 67 mL/min (>60); Est Glom Filt Rate - Afr Amer 81 mL/min (>60); Estimated Creatinine Clearance 60.83 ml/min; Glucose 252 mg/dL (74-106); Potassium 4.1 mmol/L (3.5-5.1); Protein, Total 7.6 g/dL (6.4-8.2); Sodium Level 136 mmol/L (136-145)
[2022-02-10] MEDS: Ipratropium/Albuterol Sulfate 3 ML AMPUL.NEB INHALATION ×4 (07:57→20:29)
[2022-02-10] MEDS: Metoprolol(XL)Succ 50 MG Tablet PO (11:09)
[2022-02-10] MEDS: Spironolactone 25 MG Tablet PO (11:09)
[2022-02-10] MEDS: Enoxaparin 40 MG/0.4 ML Syringe SC (11:10)
[2022-02-10] MEDS: SACUBITRIL/VALSARTAN 49-51 MG TABLET 1 EACH PO ×2 (11:10→22:50)
[2022-02-10] MEDS: Furosemide 40 MG Tablet PO (11:10)
[2022-02-10] MEDS: Aspirin 81 MG TAB.CHEW PO (11:10)
--- NOTE | 2022-02-10 12:15 | CASEMGMT ---
BETHANIE VERDE Assessment: Face to Face with pt for initial transition planning/care coordination assessment. BETHANIE VERDE introduced self and role at [facility], pt voices understanding and consents to assessment. Pt in bed. Appears to be in no distress. Pt was sleeping but woke up to answer questions. Pt is A/O and answers all questions appropriately at this time. Care providers, pharmacy, and demographics verified/updated. Admitting Dx: PNA, Suspect Viral Syndrome, COPD Exacerbation. PCP: Fritz Gasca. 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 [facility]erred [facility]acy[facility]. Insurance: Medicare Part A B, Commercial. Prescription Benefit: Yes. LW/HPOA: Pt reports having a LW/HPOA with as HPOA. Pt is aware paperwork can be placed on file if desired. LNOK: Annel Oh, . Living Arrangements: Pt lives with and grandson in a mobile home. The home has four or five steps to enter with a rail in place. Pt states the steps were built as long steps to make it easier to navigate. Pt reports being I in ADLs. Transportation: Pt drives self and denies concerns with transportation. Pt's is able to assist if needed. DME/HHC/SNF: Pt has the following: cane, rollator, shower chair, grab bar, hospital bed, and lift chair. Pt has oxygen at home with a concentrator and tanks from [employer]. Pt reports 4L at night and 4L as needed during the day. Pt denies any HHC or SNF stays currently or in the past. Pt states no concerns with going home at time of dc. Pt states no further concerns/needs. CM to follow. Advised pt to ask CM if any further question/concerns/needs arise, voices understanding. Pt Goal: Home. No needs. Plan: TBD. ? ? ?
--- NOTE | 2022-02-10 12:51 | CASEMGMT ---
Addendum entered by Saniya Lyles 02/10/22 13:05: Notification from Kia with [employer]. 4LPM via [place] is all [employer] has on file. Original Note: Reached out to Kia, with [employer], to verify oxygen order.
--- NOTE | 2022-02-10 17:38 | PN.HOSP_ITS ---
Subjective Subjective Patient was seen and examined today, he was admitted last night for shortness of breath and found to have a right lower lobe pneumonia. Patient is on chronic oxygen at 4 L at home, he does have a history of COPD. Objective Data Objective Data Vital Signs: Vital Signs Temp Pulse Resp BP Pulse Ox O2 Del Method O2 Flow Rate 98.6 F 109 H 18 107/61 94 Nasal Cannula 2 02/10/22 17:00 02/10/22 17:00 02/10/22 17:00 02/10/22 17:00 02/10/22 17:00 02/10/22 17:00 02/10/22 17:00 FiO2 94 02/10/22 01:56 Oxygen Flow Rate (L/min) 2 Oxygen Delivery Method Nasal Cannula Weight: 112.5 kg Body Mass Index (BMI) 35.6 Intake & Output: Intake and Output for Last 24 Hours 02/08/22 02/09/22 02/10/22 23:59 23:59 23:59 Intake Total 1106.66 / 1106.66 Balance 1106.66 / 1106.66 Lab / Micro Data Result Diagrams: 02/10/22 06:15 02/10/22 06:15 Labs: Laboratory Results - last 24 hr 02/09/22 21:30: WBC 7.8, RBC 5.08, Hgb 15.3, Hct 47.6, MCV 93.7, MCH 30.1, MCHC 32.1, RDW Std Deviation 46.1 H, RDW Coeff of [place] 13.4, Plt Count 174, MPV 8.9, Immature Gran % (Auto) 0.600, Neut % (Auto) 78.6 H, Lymph % (Auto) 6.9 L, [place] % (Auto) 12.2 H, Eos % (Auto) 0.9, Baso % (Auto) 0.8, Absolute Neuts (auto) 6.1, Absolute Lymphs (auto) 0.54 L, Nucleated RBC % 0, Differential Comment SCANNED 02/09/22 21:30: PT 13.7, INR 1.1, APTT 28.6 02/09/22 21:30: Sodium 136, Potassium 4.1, Chloride 100, Carbon Dioxide 31.0, Anion Gap 5, BUN 13, Creatinine 1.07, Estim Creat Clear Calc 65.38, Est GFR (MDRD) Af Amer 88, Est GFR (MDRD) Non-Af 72, BUN/Creatinine Ratio 12.1, Glucose 201 H, Calcium 8.8, Total Bilirubin 0.60, AST 15, ALT 26, Alkaline Phosphatase 87, Total Protein 8.0, Albumin 4.1, Globulin 3.9, Albumin/Globulin Ratio 1.1 02/09/22 21:30: Lactic Acid 2.4 H* 02/09/22 21:30: B-Natriuretic Peptide 76.0 02/09/22 21:30: Troponin I High Sens 15 02/09/22 23:30: Urine Color Yellow, Urine Clarity Sl. Cloudy, Urine pH 7.0, Ur Specific [place] 1.020, Urine Protein 100 H, Urine Glucose (UA) 50 H, Urine Ketones Negative, Urine Occult Blood 150 H, Urine Nitrite Positive H, Urine Bilirubin Negative, Urine Urobilinogen Normal, Ur Leukocyte Esterase 100 H, Urine RBC 0 SEEN, Urine WBC 0-5 SEEN, Ur Squamous Epith Cells 0-5 SEEN, Urine Bacteria 1+, Urine Mucus 0 SEEN 02/10/22 00:02: COVID-19 (JONAS) Not Detected 02/10/22 00:43: Procalcitonin 0.12 H 02/10/22 02:00: Lactic Acid 3.3 H* 02/10/22 06:15: WBC 5.4, RBC 4.80, Hgb 14.9, Hct 44.7, MCV 93.1, MCH 31.0, MCHC 33.3, RDW Std Deviation 46.1 H, RDW Coeff of [place] 13.4, Plt Count 148 L, MPV 8.6, Immature Gran % (Auto) 0.700, Neut % (Auto) 89.0 H, Lymph % (Auto) 7.9 L, [place] % (Auto) 1.8, Eos % (Auto) 0.0, Baso % (Auto) 0.6, Absolute Neuts (auto) 4.8, Absolute Lymphs (auto) 0.43 L, Nucleated RBC % 0, Platelet Estimate SLT 02/10/22 06:15: Sodium 136, Potassium 4.1, Chloride 98, Carbon Dioxide 29.0, Anion Gap 9, BUN 15, Creatinine 1.15, Estim Creat Clear Calc 60.83, Est GFR (MDRD) Af Amer 81, Est GFR (MDRD) Non-Af 67, BUN/Creatinine Ratio 13.0, Glucose 252 H, Calcium 8.6, Total Bilirubin 0.50, AST 13 L, ALT 23, Alkaline Phosphatase 77, Total Protein 7.6, Albumin 3.6, Globulin 4.0, Albumin/Globulin Ratio 0.9 Micro: Microbiology 02/09/22 23:30 Urine, Clean Catch Urine Culture - Preliminary Culture exhibits no growth. 02/09/22 23:30 Urine, Clean Catch Legionella Antigen - Final 02/09/22 23:30 Urine, Clean Catch Streptococcus pneumoniae Antigen (M - Final 02/09/22 21:30 Nasal Secretion SARS-CoV-2 & FLU Antigen (Rapid) - Final Radiography Diagnostic Testing: Radiology Impression Chest X-Ray 02/09/22 22:30 IMPRESSION: Emphysema with right lower lobe pneumonia. Electronically Signed: Tony Kwan MD at 22:52 EST , Physical Exam Const alert, oriented x3, no apparent distress and healthy appearing General Appearance: cooperative, well kempt and well developed Orientation / Consciousness: awake, oriented to person, oriented to place and oriented to time HEENT normocephalic, head/scalp atraumatic and moist oral mucous membranes Eyes PERRL, EOMs intact bilaterally and conjunctivae normal Neck supple, no JVD, thyroid normal and no carotid bruits General: trachea midline Resp normal respiratory effort Resp Narrative: Patient appears comfortable on nasal cannula oxygen at 2 L at this time, right lower lobe inspiratory rales are noted on auscultation which are faint Auscultation: rales; Negative for rhonchi or wheezes Cardio regular rate, regular rhythm, S1 normal heart sound, S2 normal heart sound, no murmurs, no rub and no gallops GI normal to inspection, nondistended, normoactive bowel sounds, soft to palpation, non-tender and non-distended Extremity no clubbing, cyanosis or edema Skin no rashes or lesions noted General Skin Exam: no breakdown Neuro oriented x3, CN's II-XII intact bilaterally, no focal motor deficits and no sensory deficits noted Sensorium / Orientation: awake and alert Speech: speech normal Psych affect normal Assessment & Plan Assessment/Plan (1) COPD exacerbation: PLAN: Plan 1. Right lower lobe community-acquired pneumonia-continue present antibiotic treatment, continue aerosol treatments #2 chronic hypoxic respiratory failure-patient is currently on 2 L via nasal cannula which is lower than his home oxygen requirement according to the patient. Pulse ox will be monitored #3 chronic obstructive pulmonary disease-patient has no wheezing on auscultation today, I have decided to decrease the patient's IV methylprednisolone #4 essential hypertension-patient will remain on his current medications #5 history of cardiomyopathy-type unknown, patient is on Entresto Charges/Coding Visit Charges Inpatient E&M: 58213 Subs Hosp L2
[2022-02-10] MEDS: Acetaminophen 325 MG Tablet 650 MG PO (22:49)
[2022-02-10] MEDS: Atorvastatin Calcium 80 MG Tablet PO (22:50)
--- NOTE | 2022-02-11 01:09 | PCM.HOSP.N ---
Hospitalist Note Respiratory panel with + influenza resulted, will add tamiflu.
[2022-02-11 03:46] VITALS: BP 123/82; PULSE 87; RESP 18; TEMP 37; O2SAT 93
[2022-02-11] MEDS: Mexiletine 150 MG Capsule PO (05:44)
[2022-02-11 07:03] VITALS: PULSE 88; RESP 18; O2SAT 94
[2022-02-11] MEDS: Ipratropium/Albuterol Sulfate 3 ML AMPUL.NEB INHALATION (07:08)
--- NOTE | 2022-02-11 08:40 | RAD_ITS ---
STUDY: X-RAY CHEST REASON FOR EXAM: Male, 71 years old. Pneumonia TECHNIQUE: PA and lateral views of the chest. COMPARISON: 02/09/2022 FINDINGS: The patient is rotated to the left. There is hyperinflation of the lungs consistent with chronic obstructive lung disease (COPD). There is no demonstrated pleural abnormality. Normal size heart. Normal mediastinum and nusrat. Normal visualized pulmonary arteries. Normal visualized aortic arch and descending thoracic aorta. Normal visualized thoracic spine. Normal visualized ribs, clavicles, and shoulders. There is no demonstrated abnormality of the visualized soft tissue structures of the upper abdomen. RAD/Chest PA and Lateral IMPRESSION: Emphysema without pneumonia or atelectasis. Electronically Signed: Tony Kwan MD at 9:33 EST ,
[2022-02-11] MEDS: Oseltamivir Phosphate 75 MG Capsule PO (09:47)
[2022-02-11] MEDS: SACUBITRIL/VALSARTAN 49-51 MG TABLET 1 EACH PO (09:47)
[2022-02-11] MEDS: Aspirin 81 MG TAB.CHEW PO (09:47)
[2022-02-11] MEDS: Enoxaparin 40 MG/0.4 ML Syringe SC (09:47)
[2022-02-11 09:48] VITALS: BP 114/68; PULSE 90
[2022-02-11] MEDS: Furosemide 40 MG Tablet PO (09:48)
[2022-02-11] MEDS: Metoprolol(XL)Succ 50 MG Tablet PO (09:48)
[2022-02-11] MEDS: Spironolactone 25 MG Tablet PO (09:48)
[2022-02-11] MEDS: 0.9% Saline Lock 10 ML Syringe IV (09:53)
[2022-02-11 10:00] VITALS: BP 114/68; PULSE 90; RESP 18; TEMP 36.8; O2SAT 96
--- NOTE | 2022-02-11 10:13 | NURSING ---
0945 am; weaning O2 at rest. SPO2 on 3 l 93% at rest. 1000 am; weaned O2 to 2 liter per nc SPO2 92% at rest. 1015; weaned O2 to 1 l per nc SPO2 91%. Will cont to monitor on 1 liter.
--- NOTE | 2022-02-11 11:58 | DCINST_ITS ---
Discharge Instructions Diet Discharge Diet: No restrictions Activity Discharge Activity: Return to Normal Activity Weight Bearing Status: Full weight bearing Follow Up Care Test Results: Test results from this visit will be discussed in further detail at your follow- up appointment, if applicable. Discharge Plan Admission Admit Date/Time: 02/09/22 23:42 Primary Reason for Your Visit: influenza A Attending Provider: Junaid Harrison Primary Care Provider: Fritz Gasca Consulting Providers: Elisabeth Wheeler Instructions Additional Instructions / Restrictions: Use oxygen at 4 L via nasal cannula when ambulating, you may use oxygen at 2 L at rest if you feel you need it Discharge Orders/Prescriptions Prescriptions: New oseltamivir 75 mg Capsule 75 mg PO BID Qty: 10 0RF Continued furosemide 40 mg tablet 40 mg PO DAILY Qty: 90 3RF albuterol sulfate [Ventolin HFA] 90 mcg/actuation HFA aerosol inhaler 2 puff inhalation Q4H PRN (Reason: shortness of breath or wheezing) aspirin 81 mg tablet,chewable 81 mg PO DAILY atorvastatin 80 mg tablet 80 mg PO DAILY spironolactone 25 mg tablet 25 mg PO DAILY metoprolol succinate 25 mg tablet extended release 24 hr 50 mg PO DAILY mexiletine 150 mg capsule 150 mg PO TID Entresto 49-51 mg Tablet 1 tab PO BID budesonide-formoterol [Symbicort] 160-4.5 mcg/actuation HFA aerosol inhaler 2 puff inhalation BID Qty: 1 3RF Rx Instructions: administer with spacer, rinse mouth after each use Referrals / Follow Up: Fritz Gasca MD [Primary Care Provider] - Within 2 Weeks Disposition Disposition (needs filled in before D/C Order can be placed): Home, Self Care
[2022-02-11 12:01] VITALS: O2SAT 86; O2SAT 87; O2SAT 89; O2SAT 91; O2SAT 93
--- NOTE | 2022-02-11 12:33 | PCM.DC.SUM ---
Providers Date of Admission: 02/09/22 Date of Discharge: 02/11/22 Primary Care Physician: Dr. Fritz Gasca MD Reason For Visit: PNA, SUSPECT VIRAL SYNDROME, COPD EXACERBATION Diagnosis Discharge Diagnosis (1) COPD exacerbation: Status: Chronic Code(s): J44.1 - Chronic obstructive pulmonary disease with (acute) exacerbation Plan 1. Right lower lobe pneumonia secondary to influenza A #2 chronic hypoxic respiratory failure-patient is currently on 2 L via nasal cannula which is lower than his home oxygen requirement according to the patient. Pulse ox will be monitored #3 Exacerbation of chronic obstructive pulmonary disease-patient has no wheezing on auscultation today, I have decided to decrease the patient's IV methylprednisolone #4 essential hypertension-patient will remain on his current medications #5 history of cardiomyopathy-type unknown, patient is on Entresto Medications at Discharge Home Medications albuterol sulfate 90 mcg/actuation aerosol inhaler (Ventolin HFA) 2 puff inhalation Q4H PRN shortness of breath or wheezing 08/25/20 furosemide 40 mg tablet 40 mg PO DAILY #90 tabs 08/29/20 aspirin 81 mg chewable tablet 81 mg PO DAILY 01/15/21 atorvastatin 80 mg tablet 80 mg PO DAILY 01/15/21 metoprolol succinate 25 mg tablet,extended release 24 hr 50 mg PO DAILY 01/15/21 spironolactone 25 mg tablet 25 mg PO DAILY 01/15/21 budesonide-formoterol HFA 160 mcg-4.5 mcg/actuation aerosol inhaler (Symbicort) 2 puff inhalation BID #1 ea 01/16/21 mexiletine 150 mg capsule 150 mg PO TID 09/16/21 sacubitril 49 mg-valsartan 51 mg tablet (Entresto) 1 tab PO BID 02/09/22 oseltamivir 75 mg capsule 75 mg PO BID #10 caps 02/11/22 ipratropium 0.5 mg-albuterol 3 mg (2.5 mg base)/3 mL nebulization soln 3 ml inhalation Q4H PRN PRN SOB &/OR WHEEZING #180 mL 02/12/22 Hospital Course Operations None Procedures None Summary of Care Provided Minutes Spent on Discharge: 31 Hospital Course: 71-year-old white male was seen in the emergency room at [facility] with chief complaint shortness of breath, patient has a past medical history of COPD, CHF, and asthma. Patient stated that he had had symptoms for several days. Patient wears 4 L of oxygen via nasal cannula when he sleeps only. Work-up in the emergency room included a chest x-ray which shows a right lower lobe pneumonia, patient's lactic acid was 2.4, beta nitric peptide was 76, and the patient required oxygen at 4 L to maintain his pulse ox above 90%. Rapid COVID and influenza test were negative. Patient was admitted for COPD exacerbation and right lower lobe pneumonia with hypoxia. He had a respiratory panel performed which showed influenza A, patient was placed on Tamiflu, repeat chest x-ray done on 02/11/2022 showed emphysema without evidence of pneumonia or atelectasis. On 02/11/2022, patient was seen and examined: On examination he appeared in good health and spirits. Vital signs as documented. Skin warm and dry and without overt rashes. Neck without JVD, neck was supple, trachea midline, thyroid was normal. Lungs clear bilaterally, normal air movement was noted. Heart exam notable for regular rhythm, normal sounds and absence of murmurs, rubs or gallops. Abdomen unremarkable and without evidence of organomegaly, masses, or abdominal aortic enlargement. Bowel sounds are present, abdomen is not distended. Extremities nonedematous, no cyanosis was noted, no clubbing was noted. Neuro: Cranial nerves II through XII are grossly intact, no focal motor deficits were noted, sensation to light touch and pinprick intact, motor exam 5/5 throughout. Psych: Patient is alert and oriented x3, he does not appear anxious or depressed, he does not appear agitated. On 02/11/2022, patient was seen and examined felt to be stable for discharge home. Weight / BMI Weight Weight: 110.813 kg Body Mass Index (BMI) 35.6 ABG / Lab / Microbiology Data Result Diagrams: 02/10/22 06:15 02/10/22 06:15 Microbiology: Microbiology 02/09/22 23:30 Urine, Clean Catch Urine Culture - Final Culture exhibits no growth. 02/10/22 00:02 Mucosa - Nose Respiratory Panel (PCR) - Final Influenzae A Influenza A (Subtype H3) 02/09/22 23:30 Urine, Clean Catch Legionella Antigen - Final 02/09/22 23:30 Urine, Clean Catch Streptococcus pneumoniae Antigen (M - Final 02/09/22 21:30 Nasal Secretion SARS-CoV-2 & FLU Antigen (Rapid) - Final Radiography Diagnostic Testing: Radiology Impression Chest X-Ray 02/11/22 08:40 IMPRESSION: Emphysema without pneumonia or atelectasis. Electronically Signed: Tony Kwan MD at 9:33 EST , D/C Instructions Discharge Diet: No restrictions Weight Bearing Status: Full weight bearing Meaningful Use Info Meaningful Use Diagnoses (Choose all that apply): None applicable Discharge Plan Admission Admit Date/Time: 02/09/22 23:42 Primary Reason for Your Visit: influenza A Attending Provider: Junaid Harrison Primary Care Provider: Fritz Gasca Consulting Providers: Elisabeth Wheeler Instructions Additional Instructions / Restrictions: Use oxygen at 4 L via nasal cannula when ambulating, you may use oxygen at 2 L at rest if you feel you need it Discharge Orders/Prescriptions Prescriptions: New oseltamivir 75 mg Capsule 75 mg PO BID Qty: 10 0RF Continued furosemide 40 mg tablet 40 mg PO DAILY Qty: 90 3RF albuterol sulfate [Ventolin HFA] 90 mcg/actuation HFA aerosol inhaler 2 puff inhalation Q4H PRN (Reason: shortness of breath or wheezing) aspirin 81 mg tablet,chewable 81 mg PO DAILY atorvastatin 80 mg tablet 80 mg PO DAILY spironolactone 25 mg tablet 25 mg PO DAILY metoprolol succinate 25 mg tablet extended release 24 hr 50 mg PO DAILY mexiletine 150 mg capsule 150 mg PO TID Entresto 49-51 mg Tablet 1 tab PO BID budesonide-formoterol [Symbicort] 160-4.5 mcg/actuation HFA aerosol inhaler 2 puff inhalation BID Qty: 1 3RF Rx Instructions: administer with spacer, rinse mouth after each use No Action ipratropium-albuterol 0.5 mg-3 mg(2.5 mg base)/3 mL solution for nebulization 3 ml inhalation Q4H PRN PRN (Reason: SOB &/OR WHEEZING) Qty: 180 6RF Referrals / Follow Up: Fritz Gasca MD [Primary Care Provider] - Within 2 Weeks Disposition Disposition (needs filled in before D/C Order can be placed): Home, Self Care Charges/Coding Visit Charges Inpatient E&M: 12509 Disch Hosp
[2022-02-11 13:03] VITALS: BP 134/73; PULSE 85; RESP 18; TEMP 36.8; O2SAT 93
--- NOTE | 2022-02-11 13:57 | CASEMGMT ---
Addendum entered by Fanta Ariza 02/11/22 14:02: Updated oxygen rx sent to [facility] via [employer] at this time. Original Note: RN AMMON notified that pt forgot the portable oxygen tank at home. BETHANIE VERDE in to pt room, pt made aware that he did not qualify for oxygen at rest but for 4L with exertion. Discussed with pt nurse. Plan for pt to be taken to main entrance with oxygen and car to be pulled around. Pt will ride home and prior to getting out will get oxygen tank to go in the house with. Pt has a pox at home. He is aware to monitor oxygen levels at home. Pt denies any need for HHC or therapy. agreeable to plan. Pt ready for dc home.
== END 2022-02-11 14:05 | disposition home or self-care (01) | DRG 190 ==
LOC: ED 21:37 → MS3 02-10 01:32 → MS2 02-10 09:18
PROVIDERS: Admitting Provider Family Medicine; Emergency Provider Student in an Organized Health Care Education/Training Program; PCP Family Medicine; Visit Provider Internal Medicine
DX: J44.1 Chronic obstructive pulmonary disease with (acute) exacerbation (principal); J18.9 Pneumonia, unspecified organism; I42.9 Cardiomyopathy, unspecified; J96.11 Chronic respiratory failure with hypoxia; E87.20 Acidosis, unspecified; I50.22 Chronic systolic (congestive) heart failure; J44.0 Chronic obstructive pulmonary disease with (acute) lower respiratory infection; I11.0 Hypertensive heart disease with heart failure; J10.1 Influenza due to other identified influenza virus with other respiratory manifestations; R73.9 Hyperglycemia, unspecified; Z87.891 Personal history of nicotine dependence
CPT/HCPCS: 36415; 71045; 71046; 80053; 81001; 83605; 83880; 84145; 84484; 85025; 85610; 85730; 87040; 87086; 87428; 87449; 87633; 87635; 93005; 94640; 99251; 99285; J7030; J7040; A4216; G0463; U0003; U0005

== ENCOUNTER → 2022-10-15 | Outpatient (CLI) | payer MEDICARE, OTHER, SELFPAY ==
--- NOTE | 2022-10-16 06:01 | PFT ---
INTRODUCTION: The patient is a 71-year-old male who presents for pulmonary function studies secondary to a diagnosis of COPD. Respiratory therapy reported good patient effort. Bronchodilators were used during testing. INTERPRETATION: Forced expiration spirometry demonstrates the presence of a moderately severe large airways obstructive ventilatory defect. There was a significant response to aerosolized bronchodilators. Spirograms are of good quality but do not plateau indicating slow emptying of the lungs. Body plethysmography was performed and revealed an elevated RV to 153% of predicted, indicative of underlying air trapping. Diffusing capacity by single breath CO was reduced to 45% of predicted. IMPRESSION: Partially reversible moderately severe large airways obstructive ventilatory defect with associated air trapping and severe reduction in diffusion capacity.
== END | disposition home or self-care (01) ==
LOC: PSN 09:24
PROVIDERS: PCP Family Medicine; Referring Provider Internal Medicine Critical Care Medicine; Visit Provider Internal Medicine Critical Care Medicine
DX: J96.11 Chronic respiratory failure with hypoxia (principal); J44.9 Chronic obstructive pulmonary disease, unspecified
CPT/HCPCS: 94060; 94726; 94729